=== PATIENT | male | born 1945 | race Caucasian/White ===

== ENCOUNTER → 2021-11-23 | Outpatient (CLI) | payer MEDICARE, SELFPAY ==
--- NOTE | 2021-11-23 06:41 | ECHOD_ITS ---
Reason For Study: Arrhythmia Procedure This was a 2D Doppler, Color Flow transthoracic echocardiogram. The study was technically difficult. Exam performed in department. Left Ventricle Normal LV size. Left ventricular systolic function is normal. The estimated ejection fraction is 55 %. No evidence for diastolic dysfunction. No regional wall motion abnormalities noted. Right Ventricle Normal RV size. Normal systolic function. Atria The left atrium is mildly enlarged. Normal right atrium. No doppler evidence for ASD. Mitral Valve There is no mitral annular calcification. Normal mitral valve. Mild (1+) mitral valve insufficiency. Tricuspid Valve Normal tricuspid valve. Trivial tricuspid valve insufficiency. Unable to estimate RV systolic pressure due to insufficient tricuspid regurgitant envelope. Aortic Valve Trisinus/trileaflet aortic valve. Mild focal aortic valve calcification. Trivial aortic valve insufficiency. Pulmonic Valve Normal pulmonic valve. Trivial pulmonic valve insufficiency. Great Vessels The aortic root is not well visualized. Pericardium/Pleural No pericardial effusion. MMode/2D Measurements & Calculations LVIDd: 4.5 cm IVSd: 1.1 cm LA dimension: 3.8 cm LVIDs: 3.1 cm LVPWd: 0.99 cm RVDd: 3.5 cm FS: 31.8 % LAV(MOD-bp): 63.6 ml LA A4 area: 21.5 cm2 RA A4 area: 16.3 cm2 LAV(MOD-bp) Indexed: 32.6 ml/m2 LAV(MOD-sp2): 62.5 ml LAV(MOD-sp4): 62.2 ml Time Measurements MV dec time: 0.30 sec Doppler Measurements & Calculations MV E max jay: 61.0 cm/sec Lat Peak E' Jay: 8.2 cm/sec Med Peak E' Jay: 6.4 cm/sec MV A max jay: 99.7 cm/sec E/E' lat: 7.4 E/E' med: 9.5 MV E/A: 0.61 MV V2 max: 111.2 cm/sec MV P1/2t max jay: 83.7 cm/sec Ao V2 max: 122.7 cm/sec MV max P.9 mmHg MV P1/2t: 112.0 msec Ao max P.0 mmHg MV V2 mean: 57.8 cm/sec MV dec slope: 218.9 cm/sec2 Ao V2 mean: 82.9 cm/sec MV mean P.6 mmHg MVA(P1/2t): 2.0 cm2 Ao mean P.2 mmHg MV V2 VTI: 31.3 cm Ao V2 VTI: 28.4 cm AI max ajy: 434.6 cm/sec LV V1 max: 102.2 cm/sec PA V2 max: 74.5 cm/sec AI max P.6 mmHg LV V1 max P.2 mmHg LV V1 mean P.2 mmHg AI dec slope: 235.2 cm/sec2 LV V1 mean: 68.5 cm/sec AI P1/2t: 541.3 msec LV V1 VTI: 23.3 cm ECHO/Echo Complete Interpretation Summary The study was technically difficult. Left ventricular systolic function is normal. The estimated ejection fraction is 55 %. The left atrium is mildly enlarged. There is no mitral annular calcification. Mild (1+) mitral valve insufficiency. Trivial tricuspid valve insufficiency. Mild focal aortic valve calcification. Trivial aortic valve insufficiency. Trivial pulmonic valve insufficiency. Unable to estimate RV systolic pressure due to insufficient tricuspid regurgita nt envelope. No evidence for diastolic dysfunction. Ordering Physician: Dieudonne Juan Referring Physician: Dieudonne Juan Performed By: Abhishek Morton RCS
--- NOTE | 2021-11-23 18:26 | STRESSREP_ITS ---
Stress Test Report Date: 11-23-2021 Procedure: Exercise tolerance test/imaging study Indications: Chest pain; shortness of breath/dyspnea on exertion; palpitations; paroxysmal atrial fibrillation; ventricular tachycardia Consent: Per the patient Procedure: The patient exercised on a Greyson protocol for 6 minutes completing Stage II achieving a peak heart rate of 142 bpm (98% predicted maximal heart rate) with a peak blood pressure 190/70 mmHg and a peak MET capacity of 7 METs. The baseline ECG demonstrated sinus bradycardia. The peak exercise ECG demon strated demonstrated approximately 1 to 2 mm of horizontal/downsloping ST segment depression in leads II, III, aVF, and V5 through V6 with gradual resolution towards baseline in recovery. There were occasional PVCs during exercise and recovery as well as an episode of wide-complex tachycardia (with a left bundle branch block pattern) at peak recovery with subsequent spontaneous resolution towards baseline reported after coughing. The functional capacity was considered good. There was chest discomfort in early recovery during the wide-complex rhythm which subsequently ceased status post conversion of the wide-complex rhythm back to baseline.. The examination was discontinued secondary to dyspnea. Impression: 1. Technically adequate (percent predicted maximal heart rate greater than 85%) exercise tolerance test 2. Peak exercise ECG with approximately 1 to 2 mm horizontal/downsloping ST segment depression in leads II, III, aVF, and V5 through the V6 with gradual resolution towards baseline in recovery 3. There were occasional PVCs during exercise and recovery as well as an episode of wide-complex tachycardia (with a left bundle branch block pattern) at peak recovery with subsequent spontaneous resolution towards baseline reported after coughing 4. Nuclear images pending Myocardial perfusion imaging study: Technique: The patient was injected with 11.4 mCi of technetium 99m Cardiolite and subsequently rest SPECT Cardiolite nuclear imaging was obtained in the horizontal long, vertical long, and short axis views. The patient exercised on a Greyson protocol for 6 minutes completing Stage II achieving a peak heart rate of 142 bpm (98% predicted maximal heart rate) with a peak blood pressure 190/70 mmHg and a peak MET capacity of 7 METs. The patient was injected with 32.8 mCi of technetium 99m Cardiolite and subsequently stress SPECT Cardiolite nuclear imaging was obtained in the horizontal long, vertical long, and short axis views. A gated Cardiolite study at peak stress was not obtained. Interpretation: Rest and stress SPECT Cardiolite nuclear imaging status post realignment, normalization, and attenuation correction, demonstrates the appearance of relative uniform tracer uptake and myocardial perfusion appearing within normal limits. Impression: 1. Rest and stress SPECT Cardiolite nuclear imaging demonstrate relative uniform tracer uptake and myocardial perfusion appearing within normal limits. 2. The gated Cardiolite study was not obtained. This note was generated with [employer] software. It may contain incorrect words, spelling, and punctuation that were not noted in checking the note before signing.
== END | disposition home or self-care (01) ==
LOC: CVS 06:33
PROVIDERS: PCP Nurse Practitioner Family; Referring Provider Internal Medicine Cardiovascular Disease; Visit Provider Internal Medicine Cardiovascular Disease
DX: I47.2 Ventricular tachycardia (principal); I48.0 Paroxysmal atrial fibrillation; Z98.890 Other specified postprocedural states; I10 Essential (primary) hypertension; E78.2 Mixed hyperlipidemia; R07.9 Chest pain, unspecified
CPT/HCPCS: 78452; 93017; 93306; A9500; A4216

== ENCOUNTER 2021-12-08 06:50 | Day surgery (SDC) | payer MEDICARE, SELFPAY ==
--- NOTE | 2021-12-01 09:31 | RAD_ITS ---
STUDY: X-RAY CHEST REASON FOR EXAM: Male, 76 years old. Dyspnea on exertion TECHNIQUE: PA and lateral views of the chest. COMPARISON: None. FINDINGS: There is a suggestion of minimal left lower lobe atelectasis. There is slight elevation of left hemidiaphragm. There is no demonstrated pleural abnormality. Normal size heart. Normal mediastinum and shanell. Normal visualized pulmonary arteries. Normal visualized aortic arch and descending thoracic aorta. There are diffuse degenerative changes of the visualized thoracic spine. Normal visualized ribs, clavicles, and shoulders. There is no demonstrated abnormality of the visualized soft tissue structures of the upper abdomen. RAD/Chest PA and Lateral IMPRESSION: Minimal left lower lobe atelectasis. Electronically Signed: Dianne Magdaleno MD at 2:47 EDT ,
[2021-12-01 10:38] LABS: International Normalized Ratio 1.7; Partial Thromboplast Time 32.7 Seconds (24.1-36.2); Prothrombin Time (Protime)PT. 19.3 SECONDS (11.7-14.9)
--- NOTE | 2021-12-05 17:38 | PCM.HP.BLA ---
History and Physical Date of Admission: 12/08/21 [facility] [address] [place] [address] OFFICE VISIT Date of Service:? 11/10/21 MR#: [id number] Acct: [id number] Name:DWAIN MASTERSON Rep #: [id number] : 1945 Provider: Dr. Dieudonne Juan MD Age/Sex:? 76/M Location: [facility] Status: Signed HPI [facility] History of Present Illness Details: This is a 76-year-old white male who presents today for outpatient cardiovascular consultation based upon a combination of concerns with respect to a history of PAF, ventricular tachycardia, status post EPS/RFA, hyperlipidemia, hypertension, chest discomfort/dyspnea, superimposed upon noncardiac histories which has included concerns of pulmonary fibrosis.? It appears he has undergone extensive noninvasive cardiovascular evaluation in the past as well as electrophysiology evaluation in the past. Based upon records available for review it appears on 09-07-2017 he had a transesophageal echocardiogram performed at [facility] on 09-07-2017.? Per the report stated the left ventricle was normal with an LVEF of 60 to 65%, the left atrium/appendage had no evidence of thrombus.? The mitral valve had mild MR, the aortic valve had thickening consistent with sclerosis and mild AI, the tricuspid valve had mild TR, the pulmonic valve had trivial DC, the aorta had mild atherosclerotic changes of the descending aorta, and the atrial septum had no right to left atrial level shunt. It appears that he had an exercise tolerance test/myocardial perfusion study performed on 12-25-2018.? At that point in time it stated his myocardial perfusion demonstrated normal uptake throughout the left ventricular myocardium with no previous myocardial infarction noted and no reversible defects noted and no cavitary dilatation noted.? The gated LVEF was reported at 65%. He has undergone evaluation with EPS/RFA in the past in [place], [place].? This appeared to occur in March 2004.? Per the report he had a comprehensive EPS study with catheter mapping using the CARTO mapping system, repeat programmed stimulation on Isopril, successful catheter ablation of septal concealed accessory pathway, unsuccessful catheter ablation of left ventricular outflow tract tachycardia focus. He states he has been on medical management for his cardiac dysrhythmia by his steel burner, Dr. Meadows, in [place], [place].? He states his medicines have been stable for quite some time. He also appears of had a carotid artery duplex study performed on 02-05-2017 at [facility] in [place], [place].? Per the report he had no hemodynamically significant stenosis reported. It appears that he underwent a Holter monitor in September 2018.? Per the report he had sinus rhythm with PACs and PVCs with no report of atrial fibrillation and no report of ventricular runs. He states his main concern is that when he exerts himself he develops a chest pressure over his center chest (he clenches his fist over his precordium) which sometimes radiates to his back and feels as if he has a golf ball between his shoulder blades.? He can become more short of breath and dyspneic.? He does not recall having nausea or emesis or becoming abruptly diaphoretic.? He states he will have to stop and rest to feel better.? He does not note the symptoms at rest.? When the symptoms do occur he states his blood pressure drops and he feels as if he may lose consciousness but he has not.? He notes when he is resting at times doing nothing his blood pressure significantly elevates. He states he is started to adjust his medications himself by decreasing his spironolactone/Aldactone therapy dose.? He has left his other medications as they are. He states he did discuss his concerns with his PCP group.? He states he was asked to have follow-up with Dr. Meadows, however, he states that Dr. Meadows will not address any of his cardiovascular issues separate from his cardiac rhythm related issues.? Thus he was referred for a general cardiology evaluation. In the meantime he states he has not undergone any additional cardiac diagnostic studies or evaluation. He did have an ECG in the office today.? He was noted to be in sinus rhythm with a first-degree AV block with no acute ECG changes. Intake Vital Signs ? 11/10/2208:53 Height 5 ft 8 in Weight: 180 lb 6 oz BMI 27.4 BP 160/76 H Blood Pressure Location Lt brachial Position Sitting Respiration 16 Pulse 64 Pulse Source Auscultation Intake Visit Reasons:?VT/REF. 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 Accompanied by: Allergies JUSTUS Inhibitors Adverse Reaction (Unknown, Verified 11/10/21 09:54) Unknownamlodipine Adverse Reaction (Unknown, Verified 11/10/21 09:54) EdemaSulfa (Sulfonamide Antibiotics) Adverse Reaction (Unknown, Verified 11/10/21 09:54) Unknown Medications alprazolam 0.25 mg tablet (Xanax) 0.25 mg PO TID PRN 11/08/21 [History Confirmed 11/10/21] atorvastatin 20 mg tablet 20 mg PO QHS 11/08/21 [History Confirmed 11/10/21] multivitamin 1 tab PO DAILY 11/08/21 [History Confirmed 11/08/21] rivaroxaban 20 mg tablet (Xarelto) 20 mg PO DAILY 11/08/21 [History Confirmed 11/10/21] spironolactone 25 mg tablet (Aldactone) 12.5 mg PO DAILY 11/08/21 [History Confirmed 11/10/21] valsartan 160 mg tablet (Diovan) 160 mg PO DAILY 11/08/21 [History Confirmed 11/10/21] albuterol sulfate 90 mcg/actuation aerosol inhaler (ProAir HFA) 1 inh inhalation DAILY PRN 11/10/21 [History Confirmed 11/10/21] budesonide-formoterol HFA 160 mcg-4.5 mcg/actuation aerosol inhaler (Symbicort) 2 puff inhalation Q12H PRN 11/10/21 [History Confirmed 11/10/21] flecainide 50 mg tablet 75 mg PO Q12H 11/10/21 [History Confirmed 11/10/21] dptevxkh-jlu- 250 mg-dha 90 mg-epa 160 bs-cxcn-ywke-zeax capsule (Ocuvite Adult 50 Plus) 2 cap PO QAM 11/10/21 [History Confirmed 11/10/21] PFSH Medical History? Asthma CVA (cerebral vascular accident) Essential hypertension History of DVT (deep vein thrombosis) Mixed hyperlipidemia NSVT (nonsustained ventricular tachycardia) Paroxysmal atrial fibrillation Pulmonary fibrosis Surgical History? History of cardiac radiofrequency ablation (~03/31/04) Family History? Father?? Renal failureBrother?? ,? 65 Heart disease Renal failure Social History? Smoking Status:? Former smoker alcohol intake:? current details:? 1-7 beers per week substance use type:? does not use caffeine:? No ROS Const Const: Negative for fatigue, weakness, body ache, fever(s), headache(s), chills, frequent falls, night sweats, daytime sleepiness, difficulty sleeping, excessive sweating, weight gain, weight loss, increased appetite, poor appetite, anorexia or other Eyes Eyes: Negative for blurry vision or double vision ENT ENT: Positive for dizziness (chest discomfort); Negative for headache(s) or balance problems Cardio Chest Pain: Yes Character: tightness Onset: exercise Location: mid sternal and other (at times; feeling knot in back between shoulder blades radiates to chest tightness ) Duration: brief (becomes dizzy/lightheaded BP drops) Relieving: rest Palpitations: Yes (occasional ) feels like its: irregular Edema: None Muscle aches with walking: None Resp Respiratory: Positive for SOB with activity (baseline) and SOB orthopnea\SOB lying down (wears oxygen @ 3.5L NC @ night); Negative for SOB at rest, Cough, Coughing up blood/hemoptysis, chest congestion, pain on inspiration, snoring, stridor, wheezing, crackles, paroxysmal nocturnal dyspnea or other Musc Musc: Negative for muscle aches/ myalgia, muscle weakness, joint pain or balance problems Neuro Neuro: Positive for dizziness (chest discomfort) and lightheadedness (chest discomfort); Negative for near syncope, syncope, orthostatic symptoms, frequent falls, headache(s), weakness, confusion, memory loss, restless legs, blurry vision, double vision, vertigo, seizures, lack of coordination or other Endo Endo: Negative for fatigue or excessive sweating Cardiology Exam Const Appearance: cooperative, healthy appearing, comfortable, no acute distress, well developed and well groomed Nutritional Appearance: overweight Orientation: alert, awake and oriented x3 Head Head: normal to inspection, normocephalic and atraumatic Ears: hearing grossly normal bilaterally Nose: external nose normal Face and Sinus: face symmetric Eyes Eyelids: eyelids normal Conjunctivae: conjunctivae normal Pupils: PERRL EOM: EOM intact bilaterally Neck Neck: normal visual inspection and full ROM Carotids: normal carotid upstroke Chest Chest inspection: normal inspection of the chest, symmetric chest movement and normal respiratory effort Auscultation: Bilateral: Rales (bases: faint: dry) Cardio Palpation: normal PMI Rate: regular rate Rhythm: regular rhythm Heart sounds: S1 normal and S2 normal GI GI: normal to inspection, soft and bowel sounds present Skin Skin: no rashes or lesions noted Extremities Pulses: Normal: Right Radial Pulse and Left Radial Pulse Lower Extremity Edema: None: Bilateral Psych Psychological: normal affect Supplemental Info Supplemental Information Labs: ?? ? No Data to Display Diagnostics: ?? ? No Data to Display Pulmonary: ?? ? No Data to Display Assessment and Plan Assessment and Plan (1) NSVT (nonsustained ventricular tachycardia): ?Status:?Acute ?Plan: He does have a history of nonsustained VT. He has been evaluated by electrophysiology in the past. At the present time he will continue his current medical management. (2) Paroxysmal atrial fibrillation: ?Status:?Acute ?Plan: He has a history of PAF. At the moment he will continue his current antiarrhythmic therapy. He is also on anticoagulant therapy. (3) History of cardiac radiofrequency ablation: ?Status:?Acute ?Comment: Ablation for ventricular ectopy 03/31/04 Dr. Meadows ?Plan: He has undergone previous EPS/RFA as noted. He should continue to follow with his steel burner for concerns of his underlying cardiac dysrhythmias. (4) Mixed hyperlipidemia: ?Status:?Acute ?Plan: He will continue risk factor modification medical therapy as deemed appropriate. Future lipid labs will be appropriate to monitor his cardiovascular risks. (5) Essential hypertension: ?Status:?Acute ?Plan: The etiology of his blood pressure alterations is unclear at this time. There may be some concerns, especially with respect to his exertion and his report of dropping his blood pressure, as to whether there is a change in his coronary anatomy and physiology and subsequent ventricular wall motion and systolic function, etc. At the moment he will continue his current medical therapy.? However, he will undergo further evaluation for his hypertensive changes. This will include an echocardiogram to reassess his ventricular wall motion and systolic function, renal artery duplex study to evaluate for any obvious evidence of renal artery stenosis, as well as an exercise tolerance test/imaging study to evaluate his blood pressure response with exercise and for any concerns of stress-induced myocardial ischemia that would be contributing to a change in his blood pressure especially hypotension, which would then lead to further evaluation in the cardiac catheterization laboratory which she has not previously undergone. (6) Angina pectoris: ?Status:?Acute ?Plan: The patient describes symptoms appearing compatible with angina pectoris with exertion. Again if he does have underlying CAD and myocardial ischemia that is affecting his blood pressure response with exertion (i.e. hypotension), hopefully this can be brought out by noninvasive studies.? If that is the case then would be reasonable to pursue further invasive evaluation. ? ? ? Orders: Orders 12 Lead EKG performed by [facility] Today I47.2 - Ventricular tachycardia, I48.0 - Paroxysmal atrial fibrillation ? Comprehensive Metabolic Profil 1 Day E78.2 - Mixed hyperlipidemia, I10 - Essential (primary) hypertension, I47.2 - Ventricular tachycardia, I48.0 - Paroxysmal atrial fibrillation, Z98.890 - Other specified postprocedural states ? Lipid Profile Today E78.2 - Mixed hyperlipidemia, I10 - Essential (primary) hypertension, I47.2 - Ventricular tachycardia, I48.0 - Paroxysmal atrial fibrillation, Z98.890 - Other specified postprocedural states ? Liver Profile Today E78.2 - Mixed hyperlipidemia, I10 - Essential (primary) hypertension, I47.2 - Ventricular tachycardia, I48.0 - Paroxysmal atrial fibrillation, Z98.890 - Other specified postprocedural states ? Thyroid Stim Hormone (TSH) Today E78.2 - Mixed hyperlipidemia, I10 - Essential (primary) hypertension, I47.2 - Ventricular tachycardia, I48.0 - Paroxysmal atrial fibrillation, Z98.890 - Other specified postprocedural states ? Echo Complete Today E78.2 - Mixed hyperlipidemia, I10 - Essential (primary) hypertension, I47.2 - Ventricular tachycardia, I48.0 - Paroxysmal atrial fibrillation, Z98.890 - Other specified postprocedural states ? CBC W/Diff, Automated Today E78.2 - Mixed hyperlipidemia, I10 - Essential (primary) hypertension, I47.2 - Ventricular tachycardia, I48.0 - Paroxysmal atrial fibrillation, Z98.890 - Other specified postprocedural states ? Nuclear Stress Test - Treadmil Today E78.2 - Mixed hyperlipidemia, I10 - Essential (primary) hypertension, I47.2 - Ventricular tachycardia, I48.0 - Paroxysmal atrial fibrillation, Z98.890 - Other specified postprocedural states ? Renal Artery Duplex Ultrasound Today E78.2 - Mixed hyperlipidemia, I10 - Essential (primary) hypertension, I47.2 - Ventricular tachycardia, I48.0 - Paroxysmal atrial fibrillation, Z98.890 - Other specified postprocedural states ? Plan Details Additional Comments: The patient's case was discussed and reviewed with the patient with his spouse present. The present time he will continue his medical therapy and proceed with additional noninvasive studies as noted above.? Depending upon his studies he may or may not need further invasive studies.? Also depending upon his clinical course he may need input from other physicians as well with respect to his blood pressure changes.? This could include potentially nephrology. Thank you for allowing me to participate in the care of your patient.? Please don't hesitate to call if any issues arise. This note was generated using a voice recognition system and there may be incorrect words, spelling or punctuation that were not noted when reviewing the office note prior to saving. Follow Up: ? ? 6 Weeks (PFM ) COVID (Procedure Consent) Procedure Criteria Procedure Criteria: Yes Elective The surgeon/proceduralist and patient have discussed in detail the risk of exposure to and/or potential harm posed by the COVID-19 virus with having a surgery/procedure at this time versus the risk of? delaying the surgery/procedure. It is not possible to know either the risk of delaying the surgery or procedure or chance of getting an infection with perfect accuracy, but a joint decision was made between the patient and the surgeon/proceduralist ?to proceed at this time with the scheduled surgery/procedure as indicated on the consent form. Coding Level of Care Code Off vis,new,level 5 Diagnoses NSVT (nonsustained ventricular tachycardia)? I47.2 Paroxysmal atrial fibrillation? I48.0 History of cardiac radiofrequency ablation? Z98.890 Mixed hyperlipidemia? E78.2 Essential hypertension? I10 Angina pectoris? I20.9 Coding Level of Care Code Off vis,new,level 5 Diagnoses NSVT (nonsustained ventricular tachycardia)? I47.2 Paroxysmal atrial fibrillation? I48.0 History of cardiac radiofrequency ablation? Z98.890 Mixed hyperlipidemia? E78.2 Essential hypertension? I10 Angina pectoris? I20.9 11/10/21 1306 <Electronically signed by Dieudonne Juan MD> Date Dieudonne Juan MD Cosigner Signature: Date (if applicable) CC: ? KIRK Gandara ~ Assessment & Plan Addt'l Comments Addendum: The patient underwent a transthoracic echocardiogram on 11-23-2021. The results are noted below. Interpretation Summary The study was technically difficult. ? Left ventricular systolic function is normal. The estimated ejection fraction is 55 %. The left atrium is mildly enlarged. There is no mitral annular calcification. Mild (1+) mitral valve insufficiency. Trivial tricuspid valve insufficiency. Mild focal aortic valve calcification. Trivial aortic valve insufficiency. Trivial pulmonic valve insufficiency. Unable to estimate RV systolic pressure due to insufficient tricuspid regurgitant envelope. No evidence for diastolic dysfunction. The patient underwent a stress imaging study on 11-23-2021. The results are noted below. Stress Test Report Date: 11-23-2021 Procedure: Exercise tolerance test/imaging study Indications: Chest pain; shortness of breath/dyspnea on exertion; palpitations; paroxysmal atrial fibrillation; ventricular tachycardia Consent: Per the patient Procedure: The patient exercised on a Greyson protocol for 6 minutes completing Stage II achieving a peak heart rate of 142 bpm (98% predicted maximal heart rate) with a peak blood pressure 190/70 mmHg and a peak MET capacity of 7 METs. The baseline ECG demonstrated sinus bradycardia.? The peak exercise ECG demonstrated demonstrated approximately 1 to 2 mm of horizontal/downsloping ST segment depression in leads II, III, aVF, and V5 through V6 with gradual resolution towards baseline in recovery. There were occasional PVCs during exercise and recovery as well as an episode of wide-complex tachycardia (with a left bundle branch block pattern) at peak recovery with subsequent spontaneous resolution towards baseline reported after coughing. The functional capacity was considered good. There was chest discomfort in early recovery during the wide-complex rhythm which subsequently ceased status post conversion of the wide-complex rhythm back to baseline.. The examination was discontinued secondary to dyspnea. Impression: 1.? Technically adequate (percent predicted maximal heart rate greater than 85%) exercise tolerance test 2.? Peak exercise ECG with approximately 1 to 2 mm horizontal/downsloping ST segment depression in leads II, III, aVF, and V5 through the V6 with gradual resolution towards baseline in recovery 3.? There were occasional PVCs during exercise and recovery as well as an episode of wide-complex tachycardia (with a left bundle branch block pattern) at peak recovery with subsequent spontaneous resolution towards baseline reported after coughing 4.? Nuclear images pending Myocardial perfusion imaging study: Technique: The patient was injected with 11.4 mCi of technetium 99m Cardiolite and subsequently rest SPECT Cardiolite nuclear imaging was obtained in the horizontal long, vertical long, and short axis views. The patient exercised on a Greyson protocol for 6 minutes completing Stage II achieving a peak heart rate of 142 bpm (98% predicted maximal heart rate) with a peak blood pressure 190/70 mmHg and a peak MET capacity of 7 METs. The patient was injected with 32.8 mCi of technetium 99m Cardiolite and subsequently stress SPECT Cardiolite nuclear imaging was obtained in the horizontal long, vertical long, and short axis views.? A gated Cardiolite study at peak stress was not obtained. Interpretation: Rest and stress SPECT Cardiolite nuclear imaging status post realignment, normalization, and attenuation correction, demonstrates the appearance of relative uniform tracer uptake and myocardial perfusion appearing within normal limits. Impression: 1.? Rest and stress SPECT Cardiolite nuclear imaging demonstrate relative uniform tracer uptake and myocardial perfusion appearing within normal limits. 2.? The gated Cardiolite study was not obtained. Based upon the patient's history, clinical course, and the objective findings with respect to his symptoms and wide-complex tachycardia, despite his lack of obvious myocardial perfusion changes, it was recommended the patient undergo further evaluation with diagnostic cardiac catheterization. The procedure and risk were discussed with the patient. He was agreeable to this approach. I have re-examined the patient. There are no clinical changes since date of exam. This note was generated using a voice recognition system and there may be incorrect words, spelling or punctuation that were not noted when reviewing the office note prior to saving.
[2021-12-07 07:25] VITALS: BMI 27.3
--- NOTE | 2021-12-08 09:30 | CL.D_ITS ---
Patient Name: DWAIN ASTORGA Study Date: 12/08/2021 Performing: Dieudonne Juan MD Ht: 68 inches 172.72 cm : 1945 Wt: 180.01 lbs 81.65 kg Age: 76 Gender: male BSA: 1.95 PROCEDURE(S) PERFORMED DC01-(39392)LHC/COR/LV CLINICAL PROFILE AND INDICATIONS Indications: Cardiac Arrythmia, Suspected CAD Heart Failure: None Stress/Imaging Date: 11/23/2021tress Test with SPECT MPI: Positive Intermediate Risk (abnormal ECG portion / unremarkable myocardial perfusion portion) Angina Classification Anginal Classification w/in 2 Weeks: CCS III CAD Presentations: Other: chest pain / fatigue CONCLUSIONS Elevated Left Ventricular End Diastolic Pressure Normal LV size, wall motion,and systolic function LVEF: by LV gram post PVC: 55 % Normal coronary arteries (LAD: proximal moderate calcification: otherwise angiographically normal appearing) RECOMMENDATIONS Risk factor modification Medical therapy Case discussed / reviewed with Dr. Flores of Interventional Cardiology DESCRIPTION OF PROCEDURE The patient arrived to the procedure lab. The risks and benefits of the procedure as well as a full description of our services here and current unavailability of surgical backup were fully explained to the patient and/or their significant other prior to the catheterization. The Timeout was completed, verifying the correct patient and procedure. The patient's procedural site was prepped and draped in the usual fashion. Local anesthetic was given subcutaneously to right radial region with Lidocaine 2%. Using a modified Seldinger technique, arterial access was obtained via the right radial artery, a 6Fr sheath was inserted. Right Coronary Artery selective angiography was then performed in multiple views using a 5 Fr. 4.0 Liberty catheter. Left Coronary Artery selective angiography was performed in multiple views using a 5 Fr. JL3.5 catheter. Left Ventriculography was performed in KOO projection using a 5 Fr. Pigtail catheter. LV to AO pullback pressures were then recorded.The arterial sheath was pulled and a TR Band was applied for hemostasis. Sheath flushed prior to removal. 10cc air inserted. CORONARY ANGIOGRAPHY DOMINANCE: Co- Dominant LEFT HEART ASSESSMENT Left Ventricular Ejection Fraction: by LV Gram post PVC: 55 % Normal LV wall motion Elevated Left Ventricular End Diastolic Pressure LVEDP: 24 mmHg LEFT MAIN: Angiographically normal LEFT ANTERIOR DESCENDING ARTERY: Angiographically normal PROX LAD: Moderate calcification CIRCUMFLEX ARTERY: Angiographically normal RIGHT CORONARY ARTERY: Angiographically normal AORTIC ROOT: Angiographically normal COMPLICATIONS No Complications PROCEDURE MEDICATIONS Fentanyl 50 mcg IV Versed 1 mg IV Oxygen: 2 L/min via nasal cannula Heparin given IA 12/08/2021 08:14:46 Verapamil 2.5mg, Ntg 100mcgs, 3000 units of Heparin given IA 12/08/2021 08:14:46 SUMMARY OF HEMODYNAMIC DATA Time AIR REST ECG 07:10:28 AO 178/85 (120) SA 08:32:39 LV 196/0, 30 08:41:42 LV 200/-3, 24 08:41:51 LV 196/-3, 29 08:42:48 LV 197/-3, 25 08:42:56 LVp 198/-3, 23 08:43:01 AOp 201/83 (127) 08:43:08 AIR REST 09:28:08 Signed By Dieudonne Juan MD On 12/08/2021 09:29:15 Dieudonne Juan MD
== END 2021-12-08 11:15 | disposition home or self-care (01) ==
PROVIDERS: PCP Nurse Practitioner Family; Referring Provider Internal Medicine Cardiovascular Disease; Visit Provider Internal Medicine Cardiovascular Disease
DX: I47.2 Ventricular tachycardia (principal); I48.0 Paroxysmal atrial fibrillation; J84.10 Pulmonary fibrosis, unspecified; J45.909 Unspecified asthma, uncomplicated; Z86.73 Personal history of transient ischemic attack (TIA), and cerebral infarction without residual deficits; I10 Essential (primary) hypertension; Z86.718 Personal history of other venous thrombosis and embolism; E78.2 Mixed hyperlipidemia; Z79.899 Other long term (current) drug therapy; Z79.01 Long term (current) use of anticoagulants; Z87.891 Personal history of nicotine dependence; I44.0 Atrioventricular block, first degree
CPT/HCPCS: 36415; 71046; 85610; 85730; 93458; 99152; 99153; J7040; C1769; C1894; Q9967

== ENCOUNTER → 2021-12-29 | Outpatient (CLI) | payer MEDICARE, SELFPAY ==
--- NOTE | 2021-12-29 07:38 | RDU_ITS ---
Reason For Study: HTN Right Renal Artery Left Renal Artery Right renal artery ostium 71.4/13.8 Left renal artery ostium 77.8/15.7 RSV/EDV. PSV/EDV. Right renal artery proximal Left renal artery proximal PSV/EDV 95.3/24.1 PSV/EDV. 75.7/16.7 . Right renal artery mid 123.5/30.3 Left renal artery mid 84.3/21.6 PSV/EDV. PSV/EDV . Right renal artery distal Left renal artery distal 95.2/22 119.9/23.3 PSV/EDV. PSV/EDV. Right RAR 2.07. Left RAR 1.59. Right Renal Parenchyma Left Renal Parenchyma Upper Pole Medula 31.1/8.4 PSV/EDV. Left upper pole medulla 33.7/8.5 Right upper pole medulla EDR 0.3 . PSV/EDV . Right upper pole medulla R.I. Left upper pole medulla EDR 0.3 . 0.73 . Left upper pole medulla R.I. 0.75 . Upper Arsen Cortx 18.8/4.7 PSV/EDV. UP Cortex 19.6/4.9 PSV/EDV. Right upper pole cortex EDR 0.2 . Left upper pole cortex EDR 0.2 . Right upper pole cortex R.I. 0.75 . Left upper pole cortex R.I. 0.75 . Right lower Pole medulla 28/7.1 Left lower Pole medulla 27/6.1 PSV/EDV . PSV/EDV . Right lower pole medulla EDR 0.3 . Left lower pole medulla EDR 0.2 . Right lower pole medulla R.I. Left lower pole medulla R.I. 0.77 . 0.75 . Lower Pole Cortx 17.1/4.9 PSV/EDV. Lower Pole Cortex 22.5/5.3 PSV/EDV. Left lower pole cortex EDR 0.3 . Right lower pole cortex EDR 0.2 . Left lower pole cortex R.I. 0.72 . Right lower pole cortex R.I. 0.77 . Left Renal Hilar Right Renal Hilar LT Hilar avg 59.9/13.8 PSV/EDV . Right Hilar avg 48/11.4 PSV/EDV. Left hilar acceleration time 50 Right hilar acceleration time 60 m/sec. m/sec. Left Renal Dimensions Right Renal Dimensions Left kidney size 10.65 cm . Right kidney size 10.61 cm . Left cortical dimension 2.01 cm . Right cortical dimension 1.83 cm . Nonvascularized structure is noted on the left lower pole of the kidney that measures 1.25 x 1.49 cm. Aorta Proximal abdominal aorta 2.01 x 2.04 cm . Proximal abdominal aorta peak systolic velocity is 59.8 cm/sec . Distal abdominal aorta 1.60 x 1.56 cm . Distal abdominal aorta peak systolic velocity is 61.6 cm/sec . VL/Renal Artery Duplex Ultrasound Interpretation Summary Right renal artery velocities are normal with no evidence of stenosis Right renal vein patent. The right kidney is normal in size. Left renal artery velocities are normal, with no evidence of stenosis Left renal vein patent The left kidney is normal in size. Non vascularized structure is noted on the left lower pole of the kidney that m easures 1.25 x 1.49 cm. Ordering Physician: Dieudonne Juan Referring Physician: Frida Francois Performed By: Irma Levy RVT
== END | disposition home or self-care (01) ==
LOC: CVS 07:33
PROVIDERS: PCP Nurse Practitioner Family; Visit Provider Internal Medicine Cardiovascular Disease
DX: I10 Essential (primary) hypertension (principal); I48.0 Paroxysmal atrial fibrillation; I47.20 Ventricular tachycardia, unspecified; E78.2 Mixed hyperlipidemia; Z98.890 Other specified postprocedural states
CPT/HCPCS: 93975

== ENCOUNTER → 2022-05-05 | Outpatient (CLI) | payer MEDICARE, SELFPAY ==
--- NOTE | 2022-05-05 11:56 | US_ITS ---
STUDY: RENAL ULTRASOUND - COMPLETE REASON FOR EXAM: Male, 77 years old. CKD TECHNIQUE: Ultrasound evaluation of the kidneys was performed with real-time and static pearce-scale imaging. COMPARISON: None. FINDINGS: RIGHT KIDNEY: Normal location of the right kidney, which is normal in size. The right kidney measures 10.4 cm x 4.3 cm x 5.8 cm. There is a normal cortex of the right kidney. The renal cortex measures 1.7 cm. There is no right renal mass or cyst. There are no right renal calculi. There is an extra-renal pelvis of the right kidney. There is no distention of the renal calyces. DISTAL RIGHT URETER: There is non-visualization of the distal right ureter. There is no demonstrated right ureterovesical junction calculus. There is a visualized right ureteral jet. LEFT KIDNEY: Normal location of the left kidney, which is normal in size. The left kidney measures 11.4 cm x 4.1 cm x 5.2 cm. There is a normal cortex of the left kidney. The renal cortex measures 1.4 cm. There is a 1.6 cm x 1.6 cm x 1.3 cm renal cyst. There are no left renal calculi. There is no left hydronephrosis. DISTAL LEFT URETER: There is non-visualization of the distal left ureter. There is no demonstrated left ureterovesical junction calculus. There is no demonstrated left ureteral jet. BLADDER: The distended urinary bladder has a volume of 340 ml. There is a normal wall thickness of the distended urinary bladder. There is no demonstrated mass within the urinary bladder. There are no demonstrated bladder calculi. US/Kidney and Bladder IMPRESSION: 1.6 x 1.6 cm x 1.3 cm cyst in the left kidney. Electronically Signed: Miquel Amos MD at 14:23 EST ,
== END | disposition home or self-care (01) ==
PROVIDERS: PCP Nurse Practitioner Family; Visit Provider Internal Medicine Nephrology
DX: N17.9 Acute kidney failure, unspecified (principal)
CPT/HCPCS: 76770

== ENCOUNTER → 2022-05-24 | Outpatient (CLI) | payer MEDICARE, SELFPAY ==
[2022-05-24 08:39] LABS: Hematocrit 46.1 % (40-54); Hemoglobin 15.3 g/dL (13.0-16.5)
[2022-05-24 09:04] LABS: PTHIN 62.6 pg/mL (18.4-80.1)
== END | disposition home or self-care (01) ==
LOC: LAB 08:25
PROVIDERS: PCP Nurse Practitioner Family; Referring Provider Internal Medicine Nephrology; Visit Provider Internal Medicine Nephrology
DX: N18.31 Chronic kidney disease, stage 3a (principal)
CPT/HCPCS: 36415; 83970; 85014; 85018

== ENCOUNTER 2023-07-16 21:31 | Inpatient (IN) | payer MEDICARE, SELFPAY ==
[2023-07-16] VITALS (8 sets, daily range): BP systolic 169–216; BP diastolic 80–109; PULSE 58–76; RESP 13–20; TEMP 36.3–36.8; O2SAT 92–97; BMI 12.4; BMI 27.3
--- NOTE | 2023-07-16 21:35 | EKG12_ITS ---
Test Reason : Blood Pressure : / mmHG Vent. Rate : 067 BPM Atrial Rate : 067 BPM P-R Int : 388 ms QRS Dur : 100 ms QT Int : 444 ms P-R-T Axes : 074 -19 033 degrees QTc Int : 469 ms Sinus rhythm with 1st degree A-V block Minimal voltage criteria for LVH, may be normal variant ( R in aVL ) Borderline ECG Confirmed by SUHAS SOTO, LITO ([id number]), dictionary editor GERARD ALBARRAN ([id number]) on 07/23/2023 1:25:02 PM Referred By: Confirmed By:NORMA DAI MD
--- NOTE | 2023-07-16 21:35 | CT_ITS ---
We are attempting to reach an attending provider to discuss findings. An addendum with communication details will be sent when the communication is complete. STUDY: CT BRAIN WITHOUT CONTRAST REASON FOR EXAM: Male, 78 years old. Neuro deficit, acute, stroke suspected RADIATION DOSAGE (If Supplied By Facility): CTDIvol = ( ) mGy, DLP = ( ) mGycm TECHNIQUE: Transaxial CT imaging of the brain was performed without administration of intravenous contrast material. Individualized dose optimization techniques were used for this CT. COMPARISON: No relevant priors. FINDINGS: Normal soft tissue structures. Normal calvarium. There is mild cerebral atrophy with widening of the extra-axial spaces and ventricular dilatation. There are areas of decreased attenuation within the white matter tracts of the supratentorial brain, consistent with microvascular disease changes. There are small punctate calcifications of the basal ganglia which are seen in the aging brain as a normal variant. Normal brainstem. Normal cerebellum. There is no intracranial hemorrhage. There are no findings of an acute ischemic infarction. Normal visualized paranasal sinuses. CT/STROKE Brain/Head without Cont IMPRESSION: Chronic involutional changes of the brain. Electronically Signed: Merrill Ng MD at 21:50 EDT ,
[2023-07-16 21:52] LABS: Absolute Lymphocyte Count 1.52 X10^3/uL (0.83-4.51); Absolute Neutrophil Count 6.5 X10^3/uL (2.0-7.7); Basophil# 0.04 X10^3/uL; Basophil% 0.4 % (0-1); Eosinophil# 0.18 X10^3/uL; Eosinophils% 1.9 % (0-5); Hematocrit 45.1 % (40-54); Hemoglobin 15.1 g/dL (13.0-16.5); Lymphocyte # 1.52 X10^3/ul (0.83-4.51); Lymphocyte % 16.4 % (19-41); Mean Corp Hgb Conc 33.5 g/dL (32-36); Mean Corpuscular Hgb 32.1 pg (27.0-32.0); Mean Platelet Vol. 9.1 fl (6.2-12.0); Monocyte# 1.03 X10^3/uL; Monocyte% 11.1 % (0-10); NRBC Flagged by Analyzer 0 % (0-5); Neutrophil # 6.49 X10^3/uL (2.7-7.7); Platelet Count 231 K/mm3 (150-450); RBC Distribution Width CV 12.7 % (11.6-14.6); RBC Distribution Width SD 45.2 fl (35.1-43.9); White Blood Count 9.3 K/mm3 (4.4-11.0)
[2023-07-16 22:02] LABS: International Normalized Ratio 1.3; Partial Thromboplast Time 27.7 Seconds (24.1-36.2); Prothrombin Time (Protime)PT. 16.5 SECONDS (11.7-14.9)
--- NOTE | 2023-07-16 22:05 | RAD_ITS ---
STUDY: X-RAY CHEST REASON FOR EXAM: Male, 78 years old. Neuro deficit, acute, stroke suspected TECHNIQUE: Single AP portable view of the chest. COMPARISON: 12/01/2021 FINDINGS: The lungs are clear and expanded. There is no demonstrated pleural abnormality. Normal size heart. Normal mediastinum and shanell. Normal visualized pulmonary arteries. Normal visualized aortic arch and descending thoracic aorta. Normal visualized thoracic spine. Normal visualized ribs, clavicles, and shoulders. There is no demonstrated abnormality of the visualized soft tissue structures of the upper abdomen. RAD/Chest 1 View IMPRESSION: Normal x-ray examination of the chest. Electronically Signed: Merrill Ng MD at 22:28 EDT ,
[2023-07-16 22:13] LABS: Anion Gap 6 (5-15); BUN 20 mg/dL (7-18); BUN/Creat Ratio 14.4 RATIO (10-20); Calcium,Total 8.5 mg/dL (8.5-10.1); Chloride 104 mmol/L (98-107); Creatinine, Serum 1.39 mg/dL (0.70-1.30); EST Glomerular Filtration Rate 53 mL/min (>60); Est Glom Filt Rate - Afr Amer 64 mL/min (>60); Estimated Creatinine Clearance 42.37 ml/min; Glucose 99 mg/dL (74-106); Sodium Level 137 mmol/L (136-145); Troponin-I HS 14 pg/mL (3.0-78.0)
--- NOTE | 2023-07-16 22:48 | ED.VIS.STROK ---
HPI History of Present Illness Chief Complaint: Neuro S/Sx Informant: patient and family Onset/Context/Timing Onset: Today Narrative Narrative: Patient presents at approximate 9:30 PM for evaluation of left facial droop, slurred speech, and left-sided weakness. Patient states that he was normal when he woke this morning but about 715 when he was making breakfast he noted left facial droop and slurred speech. He was seen at an outside hospital where he had a stroke workup including CTA of the head and neck as well as MRI of the brain. I was able to get copies of those reports. CTAs revealed no evidence of significant abnormality. MRI of the brain revealed a right frontal lobe hyperacute infarct. Because the patient is already on anticoagulant for paroxysmal A-fib, patient states he was advised that he could either follow-up as an outpatient or stay for admission. He elected to go home, however he then noted weakness in his left arm and leg today and this prompted his visit tonight. Patient has had prior strokes with symptoms of left-sided weakness, however has no significant residual deficit at baseline. [facility] Medical History Abnormal finding on diagnostic imaging of kidney Asthma CKD (chronic kidney disease) stage 3, GFR 30-59 ml/min CVA (cerebral vascular accident) Dyspnea on exertion Essential hypertension History of DVT (deep vein thrombosis) Mixed hyperlipidemia NSVT (nonsustained ventricular tachycardia) Paroxysmal atrial fibrillation Pulmonary fibrosis Home Medications alprazolam 0.25 mg tablet (Xanax) 0.25 mg PO TID PRN Anxiety 11/08/21 [History Last Taken Unknown] atorvastatin 20 mg tablet 20 mg PO QHS 11/08/21 [History Last Taken Unknown] multivitamin 1 tab PO DAILY 11/08/21 [History Last Taken Unknown] spironolactone 25 mg tablet (Aldactone) 12.5 mg PO DAILY 11/08/21 [History Last Taken Unknown] albuterol sulfate 90 mcg/actuation aerosol inhaler (ProAir HFA) 1 inh inhalation DAILY PRN Wheezing 11/10/21 [History Last Taken Unknown] budesonide-formoterol HFA 160 mcg-4.5 mcg/actuation aerosol inhaler (Symbicort) 2 puff inhalation Q12H PRN Wheezing 11/10/21 [History Last Taken Unknown] [id number] 250 mg-dha 90 mg-epa 160 [id number]-[id number] capsule (Ocuvite Adult 50 Plus) 2 cap PO QAM 11/10/21 [History Last Taken Unknown] metoprolol tartrate 25 mg tablet 12.5 mg (1/2 x 25 mg) PO BID #90 tabs 12/08/21 [Rx Last Taken Unknown] valsartan 160 mg tablet (Diovan) 160 mg PO BID #180 tabs 12/11/22 [Rx Last Taken Unknown] apixaban 5 mg tablet (Eliquis) 5 mg PO BID 12/21/22 [History Last Taken Unknown] flecainide 150 mg tablet 75 mg (1/2 x 150 mg) PO Q12H #90 tabs 07/04/23 [Rx Last Taken Unknown] aspirin 81 mg capsule 81 mg PO DAILY 07/16/23 [History Last Taken Unknown] metoprolol tartrate 50 mg tablet 50 mg PO BID 07/16/23 [History Last Taken Unknown] Allergy/AdvReac Type Severity Reaction Status Date / Time JUSTUS Inhibitors AdvReac Unknown Unknown Verified 12/21/22 10:49 amlodipine AdvReac Unknown Edema Verified 12/21/22 10:49 Sulfa (Sulfonamide AdvReac Unknown Unknown Verified 12/21/22 10:49 Antibiotics) Family History Father Renal failure Brother , 65 Heart disease Renal failure Surgical History History of cardiac radiofrequency ablation (~03/31/04) History of left heart catheterization (12/08/21) Social History Smoking Status: Former smoker how long ago did patient quit smokin alcohol intake: current alcohol intake frequency: 0-2 drinks per day details: 1-7 beers per week substance use type: does not use caffeine: No ROS ROS ED Constitutional Constitutional ED: Denies chills or fever(s) Eyes Eyes: Denies change in vision ENT ENT ED: Denies rhinorrhea or sore throat Cardiovascular Cardiovascular: Denies chest pain or palpitations Respiratory/Chest Respiratory/Chest: Denies cough or dyspnea Gastrointestinal Gastrointestinal: Denies abdominal pain, nausea or vomiting Genitourinary Genitourinary ED: Denies dysuria Musculoskeletal Musculoskeletal: Denies back pain or extremity pain Integumentary Denies Abrasions or rash Neurologic Neurologic: Reports weakness; Denies headache(s) Psychiatric Psychiatric: Denies anxiety or depression Allergic/Immunologic Allergic/Immunologic ED: Denies lip swelling or urticaria EXAM Physical Exam Const Vital Signs: 07/16/23 21:32 07/16/23 21:35 07/16/23 21:42 Temperature 97.4 F L 98.2 F Temperature Source Temporal Oral Pulse Rate 75 76 Respiratory Rate 19 H 16 Blood Pressure 216/109 H 216/109 H Blood Pressure Mean 144 144 Pulse Ox 95 97 97 Oxygen Delivery Method Room Air Room Air Room Air 07/16/23 21:56 07/16/23 22:05 07/16/23 22:30 Temperature Temperature Source Pulse Rate 69 67 58 L Respiratory Rate 16 20 H 15 Blood Pressure 193/95 H 169/89 H 174/89 H Blood Pressure Mean 127 115 117 Pulse Ox 96 95 96 Oxygen Delivery Method Room Air Room Air Room Air Positive well nourished and well developed General Appearance ED: well developed HEENT Reports moist mucous membranes Eyes EOMs intact bilaterally Chest Wall inspection of chest normal and palpation of chest normal Resp normal respiratory effort and clear to auscultation bilaterally Cardio Rate: bradycardia GI soft to palpation and non-tender Extremity normal to inspection Neuro oriented x3 Neuro Narrative: See NIH stroke score Psych mental status grossly normal Skin no wounds NIHSS NIHSS Initial: 1a Level of Consciousness: 0 1b LOC Questions (Score 2 if aphasic/stupor): 0 1c LOC Commands (Only score 1st attempt): 0 2 Best Gaze (If aphasic, use reflexive mvmts.): 0 3 Visual: 0 4 Facial Palsy: 2 5 Motor Arm Right (UN = amputation/fusion): 0 5 Motor Arm Left: 0 6 Motor Leg Right: 0 6 Motor Leg Left: 0 7 Limb ataxia (Only + if out of proportion): 0 8 Sensory (Aphasia/stupor=0 or 1, coma=2): 0 9 Best Language: 0 10 Dysarthria (mute, coma=2, intubated=UN): 1 11 Extinction and Inattention (only scored if +): 0 Total Score: 3 MDM MDM MDM Narrative Medical decision making narrative: Stroke alert called at the time of my initial evaluation. Patient sent for a noncontrast CT. While he was in CT I was able to pull up records from outside facility this morning and review his MRI and CTA results. IV line initiated. Labwork obtained to evaluate for leukocytosis, anemia, and electrolyte derangement. EKG obtained to evaluate for cardiac arrhythmia/ischemia. Chest x-ray obtained to evaluate for acute lung pathology, cardiac size, or mediastinal abnormality. History & Record Review Discussion w/independent historian: Patient Lab Data Attestation: I reviewed the patient's lab results. Labs: Laboratory Results - last 24 hr 07/16/23 21:44 WBC 9.3 RBC 4.70 Hgb 15.1 Hct 45.1 MCV 96.0 H MCH 32.1 H MCHC 33.5 RDW Std Deviation 45.2 H RDW Coeff of Bee 12.7 Plt Count 231 MPV 9.1 Immature Gran % (Auto) 0.200 Neut % (Auto) 70.0 Lymph % (Auto) 16.4 L Brown % (Auto) 11.1 H Eos % (Auto) 1.9 Baso % (Auto) 0.4 Absolute Neuts (auto) 6.5 Absolute Lymphs (auto) 1.52 Nucleated RBC % 0 PT 16.5 H INR 1.3 APTT 27.7 Sodium 137 Potassium 4.0 Chloride 104 Carbon Dioxide 27.0 Anion Gap 6 BUN 20 H Creatinine 1.39 H Estim Creat Clear Calc 42.37 Est GFR (MDRD) Af Amer 64 Est GFR (MDRD) Non-Af 53 L BUN/Creatinine Ratio 14.4 Glucose 99 Calcium 8.5 Troponin I High Sens 14 Radiography Chest X-Ray - ED: 1 View, Read by ED Physician, Chronic Changes and No Infiltrates Diagnostic Testing: Clinical Impression(s) from Imaging Studies Brain CT 07/16/23 21:35 IMPRESSION: Chronic involutional changes of the brain. Electronically Signed: Merrill Ng MD at 21:50 EDT , ADDENDUM: 07/16/232158 IMPRESSION: Chronic involutional changes of the brain. N.B. : The above Results were Read Back by Merrill Ng MD to Pamella Linares MD, and understanding confirmed on 07/16/2023 21:52:35 (ET). Electronically Signed: Merrill Ng MD at 21:50 EDT , Chest X-Ray 07/16/23 22:05 IMPRESSION: Normal x-ray examination of the chest. Electronically Signed: Merrill Ng MD at 22:28 EDT , EKG Initial EKG: Attestation: I personally reviewed and interpreted this EKG as follows: Interpretation: Sinus Rhythm (Sinus at 67 with no evidence of acute ischemia.) Treatment and Re-Evaluation Narrative: CBC was normal white count 9.3 with no left shift. INR is 1.3. Chemistry studies reveal a BUN of 20 and a creatinine 1.39. Glucose is 99. Troponin is normal at 14. Portable chest x-ray per my interpretation was chronic changes with no focal infiltrate. Radiology interpretation reviewed and agrees. EKG is sinus rhythm with no acute ischemia. I received a phone call from radiology indicating patient had no evidence of acute intracranial bleed. I spoke with [facility] neurology on the phone. He stated that we could let the patient's blood pressure run higher overnight as he is concerned the patient's symptoms may worsen if his blood pressure drops too significantly. Patient will require admission for further stroke workup. I will speak with hospitalist. Discharge Plan Triage Chief Complaint: Neuro S/Sx ED Provider: Pamella Linares Dx/Rx/DC Orders Clinical Impression: Acute CVA (cerebrovascular accident) Prescriptions: No Action Ocuvite Adult 50 Plus 250 mg (90 mg-160 mg) capsule 2 cap PO QAM albuterol sulfate [ProAir HFA] 90 mcg/actuation HFA aerosol inhaler 1 inh inhalation DAILY PRN (Reason: Wheezing) atorvastatin 20 mg tablet 20 mg PO QHS spironolactone [Aldactone] 25 mg tablet 12.5 mg PO DAILY alprazolam [Xanax] 0.25 mg tablet 0.25 mg PO TID PRN (Reason: Anxiety) multivitamin Tablet 1 tab PO DAILY budesonide-formoterol [Symbicort] 160-4.5 mcg/actuation HFA aerosol inhaler 2 puff inhalation Q12H PRN (Reason: Wheezing) Eliquis 5 mg tablet 5 mg PO BID metoprolol tartrate 50 mg tablet 50 mg PO BID aspirin 81 mg capsule 81 mg PO DAILY metoprolol tartrate 25 mg tablet 12.5 mg PO BID Qty: 90 4RF valsartan [Diovan] 160 mg tablet 160 mg PO BID Qty: 180 4RF flecainide 150 mg tablet 75 mg PO Q12H Qty: 90 3RF Primary Care Provider: Frida Gandara NP Referrals: Frida Gandara NP, PATTERN CHART WRITER-C [Primary Care Provider] - Disposition Disposition: Acute Care [facility]
--- NOTE | 2023-07-16 23:25 | PCM.HP.STD ---
[facility] General Date of Admission: 07/16/23 Date of Service: 07/16/23 Chief Complaint: Left facial droop, slurred speech and left-sided weakness worsening throughout the day. HPI Christopher ASTORGA, is a 78 M with a past medical history of essential hypertension, hyperlipidemia, overweight; BMI 27.3 this admission, chronic kidney disease; stage III, asthma, history of pulmonary fibrosis, history of NSVT, paroxysmal atrial fibrillation; on Eliquis, BASA, metoprolol and flecainide, history of cardiac radiofrequency ablation (2004), history of recurrent CVA; with left sided weakness (2016) and (~2018) with recent evaluation at [facility] this morning after he woke up at 7:15 AM and noticed left facial droop, slurred speech and weakness in his left leg which caused him to go to the ER for further evaluation and treatment. He underwent a CTA of the head and neck as well as an MRI of the brain which revealed a right frontal lobe hyperacute infarct. 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 Unfortunately, the patient chose to go home and then mowed his lawn and carried wood but then at approximately 9:30 PM he noticed worsening of his left facial droop, slurred speech and left-sided weakness particularly in his left leg so he decided to come in to [facility] ER for further evaluation and treatment. He states that this will be his third similar stroke stroke affecting his left side since 2017 but he is always able to fully recover without formal physical therapy and without residual deficits. The patient's son was present at the bedside in the ER and is also an RN and he reports that his father was previously on Xarelto but this agent was stopped after he could no longer receive financial assistance and that he has been on Eliquis without incident for the past ~2 years up until now. He denies associated fever, chills, nausea, vomiting, headache, lightheadedness, visual changes or other acute illness but he does admit to frequently biting his left lower lip along with persistently slurred speech and he states he did just take his evening dose of Eliquis. In the ER stroke alert was called and he was diagnosed with subacute right frontal CVA in the setting of treatment failure of combination of Eliquis and baby aspirin use to treat paroxysmal atrial fibrillation with patient currently in normal sinus rhythm on EKG with a blood pressure of 216/109 mmHg present on admission and an NIH-SS score of 3. The ER physician spoke with [facility] teleneu[facility] via phone with patient showing no evidence of bleeding on his most recent CT scan with recommendation for permissive hypertension as dropping his blood pressure acutely may worsen his symptoms. He was then admitted to the PCU for ongoing care for stay that is expected to be greater than 48 hours. [facility] Medical History Abnormal finding on diagnostic imaging of kidney Asthma CKD (chronic kidney disease) stage 3, GFR 30-59 ml/min CVA (cerebral vascular accident) Dyspnea on exertion Essential hypertension History of DVT (deep vein thrombosis) Mixed hyperlipidemia NSVT (nonsustained ventricular tachycardia) Paroxysmal atrial fibrillation Pulmonary fibrosis Home Medications alprazolam 0.25 mg tablet (Xanax) 0.25 mg PO TID PRN Anxiety 11/08/21 [History Last Taken Unknown] atorvastatin 20 mg tablet 20 mg PO QHS 11/08/21 [History Last Taken Unknown] multivitamin 1 tab PO DAILY 11/08/21 [History Last Taken Unknown] spironolactone 25 mg tablet (Aldactone) 12.5 mg PO DAILY 11/08/21 [History Last Taken Unknown] albuterol sulfate 90 mcg/actuation aerosol inhaler (ProAir HFA) 1 inh inhalation DAILY PRN Wheezing 11/10/21 [History Last Taken Unknown] budesonide-formoterol HFA 160 mcg-4.5 mcg/actuation aerosol inhaler (Symbicort) 2 puff inhalation Q12H PRN Wheezing 11/10/21 [History Last Taken Unknown] [id number] 250 mg-dha 90 mg-epa 160 sq-rrlv-goim-zeax capsule (Ocuvite Adult 50 Plus) 2 cap PO QAM 11/10/21 [History Last Taken Unknown] metoprolol tartrate 25 mg tablet 12.5 mg (1/2 x 25 mg) PO BID #90 tabs 12/08/21 [Rx Last Taken Unknown] valsartan 160 mg tablet (Diovan) 160 mg PO BID #180 tabs 09/18/23 [Rx Last Taken Unknown] apixaban 5 mg tablet (Eliquis) 5 mg PO BID 12/21/22 [History Last Taken Unknown] flecainide 150 mg tablet 75 mg (1/2 x 150 mg) PO Q12H #90 tabs 07/04/23 [Rx Last Taken Unknown] aspirin 81 mg capsule 81 mg PO DAILY 07/16/23 [History Last Taken Unknown] metoprolol tartrate 50 mg tablet 50 mg PO BID 07/16/23 [History Last Taken Unknown] Allergy/AdvReac Type Severity Reaction Status Date / Time JUSTUS Inhibitors AdvReac Unknown Unknown Verified 12/21/22 10:49 amlodipine AdvReac Unknown Edema Verified 12/21/22 10:49 Sulfa (Sulfonamide AdvReac Unknown Unknown Verified 12/21/22 10:49 Antibiotics) Family History Father Renal failure Brother , 65 Heart disease Renal failure Surgical History History of cardiac radiofrequency ablation (~03/31/04) History of left heart catheterization (12/08/21) Social History Smoking Status: Never smoker how long ago did patient quit smokin alcohol intake: current alcohol intake frequency: 0-2 drinks per day details: 1-7 beers per week substance use type: does not use caffeine: No ROS ROS Narrative Review of systems: General: Patient denies fever or chills. HENT: Denies headache, denies stuffy nose, denies sore throat EYES: Denies changes in vision or discharge from eyes. Resp: Denies cough, denies shortness of breath Cardiac: Denies chest pain, palpitations or heart racing. GI: Denies abdominal pain, denies changes in bowel, patient denies nausea or vomiting. : Denies changes in urination Extremity: Denies swelling Musculoskeletal: Patient denies arthralgias or myalgias. Neuro: Patient admits to persistent left facial droop, slurred speech and left leg weakness as per HPI. Heme: Denies any bleeding or bruising Skin: Denies rashes Psychiatric: No complaints voiced related uncontrolled depression or anxiety. Endocrine: No polyuria, polydipsia or polyphagia. The rest of the 14 point ROS was negative except for positives in HPI. Vital Signs Vital Signs Vital Signs: 07/16/23 21:32 07/16/23 21:35 07/16/23 21:42 Temperature 97.4 F L 98.2 F Temperature Source Temporal Oral Pulse Rate 75 76 Respiratory Rate 19 H 16 Blood Pressure 216/109 H 216/109 H Blood Pressure Mean 144 144 Pulse Ox 95 97 97 Oxygen Delivery Method Room Air Room Air Room Air 07/16/23 21:56 07/16/23 22:05 07/16/23 22:30 Temperature Temperature Source Pulse Rate 69 67 58 L Respiratory Rate 16 20 H 15 Blood Pressure 193/95 H 169/89 H 174/89 H Blood Pressure Mean 127 115 117 Pulse Ox 96 95 96 Oxygen Delivery Method Room Air Room Air Room Air Weight Weight: 179 lb 7.3 oz Body Mass Index (BMI) 27.3 Physical Exam Const alert, oriented x3, no apparent distress, average body habitus, healthy appearing and well nourished Constitutional Narrative: Obvious left facial droop and slurred speech noted. General Appearance: cooperative HEENT normocephalic, head/scalp atraumatic, hearing grossly normal bilaterally and moist oral mucous membranes Eyes PERRL, EOMs intact bilaterally and conjunctivae normal Neck no lymphadenopathy and supple Resp normal respiratory effort, no retractions, no use of accessory muscles and clear to auscultation bilaterally Cardio regular rate and regular rhythm GI normal to inspection, nondistended, normoactive bowel sounds, soft to palpation, non-tender and non-distended Extremity normal to inspection, full ROM and no clubbing, cyanosis or edema Neuro oriented x3, CN's II-XII intact bilaterally and moves all extremities Neuro Narrative: Patient has obvious left-sided facial droop and dysarthric speech but is otherwise neurologically intact and is able to follow commands and lift his legs against resistance and he retains good strength in his upper extremities with slightly 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 Sensorium / Orientation: awake, alert, oriented to person, oriented to place and oriented to time Speech: speech normal Psych affect normal Results Medical Records Data Attestation: I reviewed the patient's medical records Lab / Micro Data Attestation: I reviewed the patient's lab results. 07/16/23 21:44 07/16/23 21:44 Labs: Laboratory Results - last 24 hr 07/16/23 21:44: WBC 9.3, RBC 4.70, Hgb 15.1, Hct 45.1, MCV 96.0 H, MCH 32.1 H, MCHC 33.5, RDW Std Deviation 45.2 H, RDW Coeff of Bee 12.7, Plt Count 231, MPV 9.1, Immature Gran % (Auto) 0.200, Neut % (Auto) 70.0, Lymph % (Auto) 16.4 L, [facility] % (Auto) 11.1 H, Eos % (Auto) 1.9, Baso % (Auto) 0.4, Absolute Neuts (auto) 6.5, Absolute Lymphs (auto) 1.52, Nucleated RBC % 0, PT 16.5 H, INR 1.3, APTT 27.7, Sodium 137, Potassium 4.0, Chloride 104, Carbon Dioxide 27.0, Anion Gap 6, BUN 20 H, Creatinine 1.39 H, Estim Creat Clear Calc 42.37, Est GFR (MDRD) Af Amer 64, Est GFR (MDRD) Non-Af 53 L, BUN/Creatinine Ratio 14.4, Glucose 99, Calcium 8.5, Troponin I High Sens 14 Imaging Radiology Impression Brain CT 07/16/23 21:35 IMPRESSION: Chronic involutional changes of the brain. Electronically Signed: Merrill Ng MD at 21:50 EDT Reading Location ID and State: [id number] / [facility] Tel , Service support , ADDENDUM: 07/16/232158 IMPRESSION: Chronic involutional changes of the brain. N.B. : The above Results were Read Back by Merrill Ng MD to Pamella Linares MD, and understanding confirmed on 07/16/2023 21:52:35 (ET). Electronically Signed: Merrill Ng MD at 21:50 EDT Reading Location ID and State: [id number] / [facility] Tel , Service support , Chest X-Ray 07/16/23 22:05 IMPRESSION: Normal x-ray examination of the chest. Electronically Signed: Merrill Ng MD at 22:28 EDT , Assessment & Plan Assessment/Plan (1) Acute CVA (cerebrovascular accident): (2) Paroxysmal atrial fibrillation: (3) History of cardiac radiofrequency ablation: PLAN: Plan 1. Acute right frontal CVA; with left-sided weakness, left facial droop and slurred speech - recurrent (2017) and (~2019) with recent evaluation at [facility] this morning and subsequent discharge - Admit to ICU for treatment under the stroke protocol. Check carotid doppler to evaluate for stenosis. Recheck MRI of the brain to evaluate for evidence of worsening CVA. Check echocardiogram to evaluate LVEF. Continue BASA and statin and switch to alternative NOAC in the AM. Give Tylenol prn pain or fever. 2. Paroxysmal atrial fibrillation; on baby aspirin and Eliquis with suspected treatment failure causing #1 - Patient should likely be switched back to Xarelto vs an alternative agent with treatment failure of combination of Eliquis and BASA. If Xarelto is chosen to restart he will need help to defray the cost as he says currently it would be ~$700/mo. - which he cannot afford. 3. Essential hypertension - Hold scheduled antihypertensives to allow for 'permissive hypertension' as per teleneurology recommendations. 4. Hyperlipidemia - Resume statin and check Lipid Profile this admission in light of #1. 5. Overweight; BMI 27.3 this admission - Weight loss will be recommended. Check TSH. 6. Chronic kidney disease; stage III - Stable. 7. Asthma - No evidence of acute flare. Give nebulizers prn. 8. History of pulmonary fibrosis - Stable. 9. History of NSVT - Noted. 10. History of cardiac radiofrequency ablation (2004) - Noted. 11. DVT prophylaxis - SCD's for now with recommendation to switch patient back to Xarelto in AM if [facility] agrees. Total time: Approximately 55 minutes. Charges/Coding Visit Charges Inpatient E&M: 67970 Init Hosp L2
--- NOTE | 2023-07-16 23:54 | CDU_ITS ---
Reason For Study: acute right frontal CVA Rt. Velocities/BP Lt. Velocities/BP Prox CCA 57.9/12.6 cm/sec. Prox CCA 68.3/12.6 cm/sec. Mid CCA 53.2/10.7 cm/sec. Mid CCA 57.0/10.7 cm/sec. Dist CCA 44.7/9.7 cm/sec. Dist CCA 50.4/9.7 cm/sec. Prox ICA 76.8/18.2 cm/sec. Prox ICA 39.0/11.6 cm/sec. Mid ICA 71.1/19.2 cm/sec. Mid ICA 41.9/13.5 cm/sec. Dist ICA 61.6/14.8 cm/sec. Dist ICA 34.6/6.4 cm/sec. Rt. ICA/CCA = 1.4. Lt. ICA/CCA = .7. Prox ECA 74.0/8.8 cm/sec. Prox ECA 39.0/5.0 cm/sec. Rt. Vert. 36.2/6.9 cm/sec. Lt. Vert. 39.0/6.0 cm/sec. Right Extracranial There is heterogeneous, irregular atherosclerotic plaque noted in the right common carotid artery. There is heterogeneous, irregular atherosclerotic plaque noted in the right internal carotid artery. There is intimal thickening but no significant atherosclerotic plaque noted in the right external carotid artery. Antegrade flow is noted in the right vertebral artery. Left Extracranial There is homogeneous, smooth atherosclerotic plaque noted in the left common carotid artery. There is heterogeneous, irregular atherosclerotic plaque noted in the left internal carotid artery. There is intimal thickening but no significant atherosclerotic plaque noted in the left external carotid artery. Antegrade flow is noted in the left vertebral artery. Procedure Carotid Duplex 60409. This is a Carotid Duplex examination using B-mode, color flow and specral Doppler. The exam was diagnostic. Exam performed portable in ICU/CCU. VL/Carotid Duplex Ultrasound Interpretation Summary Mild (<50%) stenosis right extracranial internal carotid. Mild (<50%) stenosis left extracranial internal carotid. Patent and antegrade vertebrals bilaterally. Ordering Physician: Stephane Mao Performed By: Dima Romero RVT
--- NOTE | 2023-07-16 23:54 | ECHOD_ITS ---
Reason For Study: TIA/CVA Procedure This was a 2D Doppler, Color Flow transthoracic echocardiogram. Exam performed portable in patient room. Left Ventricle Normal LV size. The estimated ejection fraction is 65 %. Diastolic function is indeterminate. No regional wall motion abnormalities noted. Right Ventricle Normal RV size. Normal systolic function. Atria The left atrium is mildly enlarged. Normal right atrium. No doppler evidence for ASD. Mitral Valve There is no mitral valve stenosis. Mild (1+) mitral valve insufficiency. Tricuspid Valve There is no tricuspid stenosis. Trivial tricuspid valve insufficiency. Unable to estimate RV systolic pressure due to insufficient tricuspid regurgitant envelope. Aortic Valve Trisinus/trileaflet aortic valve. There is no aortic stenosis. Mild (1+) aortic valve insufficiency. Pulmonic Valve There is no pulmonic valvular stenosis. Trivial pulmonic valve insufficiency identified. Great Vessels Normal aortic root. Pericardium/Pleural No pericardial effusion. MMode/2D Measurements & Calculations LVIDd: 4.0 cm IVSd: 1.3 cm LVOT diam: 2.3 cm LVIDs: 2.6 cm LVPWd: 1.2 cm LVOT area: 4.3 cm2 RVDd: 4.3 cm FS: 34.1 % Ao root diam: 3.5 cm LAV(MOD-bp): 69.8 ml LVAd ap4: 23.7 cm2 LAV(MOD-bp) Indexed: 36.5 ml/m2 LVLd ap4: 7.9 cm LAV(MOD-sp2): 82.6 ml EDV(MOD-sp4): 57.1 ml LAV(MOD-sp4): 57.1 ml EDV(sp4-el): 60.7 ml LVAs ap4: 12.4 cm2 LVLs ap4: 6.6 cm ESV(MOD-sp4): 20.2 ml ESV(sp4-el): 19.9 ml EF(MOD-sp4): 64.7 % EF(sp4-el): 67.2 % LVAd ap2: 24.0 cm2 SV(MOD-sp4): 37.0 ml SV(MOD-sp2): 34.4 ml LVLd ap2: 8.5 cm EDV(MOD-sp2): 55.8 ml EDV(sp2-el): 57.2 ml LVAs ap2: 12.4 cm2 LVLs ap2: 6.7 cm ESV(MOD-sp2): 21.3 ml ESV(sp2-el): 19.5 ml EF(MOD-sp2): 61.7 % SV(sp4-el): 40.8 ml LA dimension(2D): 4.3 cm LA A4 area: 20.3 cm2 RA A4 area: 24.6 cm2 TAPSE: 2.5 cm Time Measurements MV dec time: 0.57 sec Doppler Measurements & Calculations MV E max jay: 64.0 cm/sec Lat Peak E' Jay: 8.0 cm/sec Med Peak E' Jay: 6.9 cm/sec MV A max jay: 103.3 cm/sec E/E' lat: 8.0 E/E' med: 9.2 MV E/A: 0.62 Ao V2 max: 124.7 cm/sec AI max jay: 413.7 cm/sec MV dec slope: 111.8 cm/sec2 Ao max P.2 mmHg AI max P.6 mmHg Ao V2 mean: 75.1 cm/sec Ao mean P.7 mmHg AI dec slope: 155.2 cm/sec2 Ao V2 VTI: 30.0 cm AI P1/2t: 780.5 msec AV (velocity ratio): 0.92 ANGELI(I,D): 4.0 cm2 ANGELI(V,D): 3.2 cm2 LV V1 max: 93.6 cm/sec SV(LVOT): 118.5 ml PA V2 max: 71.0 cm/sec LV V1 max P.5 mmHg PA max PG (full): 1.1 mmHg LV V1 mean P.8 mmHg LV V1 mean: 62.5 cm/sec LV V1 VTI: 27.6 cm ECHO/Echo Complete Interpretation Summary The estimated ejection fraction is 65 %. Diastolic function is indeterminate. The left atrium is mildly enlarged. Mild (1+) mitral valve insufficiency. Mild (1+) aortic valve insufficiency. Ordering Physician: Stephane Mao Performed By: Coretta Sahni, RDCS
[2023-07-17] VITALS (10 sets, daily range): BP systolic 170–191; BP diastolic 75–91; PULSE 43–61; RESP 13–19; TEMP 36.4–36.7; O2SAT 96–99; BMI 26.1
[2023-07-17] MEDS: ALPRAZolam 0.25 MG Tablet PO ×2 (00:22→20:46)
[2023-07-17] MEDS: Acetaminophen 325 MG Tablet 650 MG PO ×2 (00:22→20:46)
[2023-07-17 00:53] LABS: Thyroid Stim Hormone (TSH) 1.62 uIU/mL (0.358-3.74)
[2023-07-17 02:43] LABS: Hemoglobin A1c 5.4 % (3.8-5.6)
--- NOTE | 2023-07-17 06:55 | PCM.PN.HOSP ---
Reason for Visit Reason for Visit: Left facial droop/slurred speech/left-sided weakness Subjective Subjective Mr. Mobley is a 78-year-old white male who presented to the emergency department at [facility] at 930 last evening for new onset left facial droop, slurred speech, and left-sided weakness. When he awoke on the morning of presentation he was normal without any deficits. That was about 715 and then while he was making breakfast he noted some left facial droop and slurred speech. He was seen in an outside hospital where he had a stroke workup including a CTA of the head and neck as well as an MRI of the brain. Those reports were obtained by the emergency department and the CT at that time showed no evidence of significant abnormality in the MRI of the brain revealed a right frontal lobe acute hyperacute infarct. The patient is already on baseline anticoagulation for paroxysmal atrial fibrillation and he was advised that he can either follow-up as an outpatient or stay for the admission and he will likely be at home. However after going back home he then noted weakness in his left arm and leg which him to come the emergency department here. He does have a prior history of strokes with left-sided weakness however had no residual baseline deficit. The ER did speak with [facility] neurology after CT here reported no evidence of acute intercranial bleed and they indicated to allow for per minutes of hypertension and admission for further stroke workup. Vital signs on presentation showed a temperature of 97.4, heart rate was 75, respiratory rate 19, initial blood pressure was 216/109 and was 174/89 when he left the emergency department with an oxygen saturation of 95% on room air. His CBC was overtly unremarkable. Coags are slightly abnormal with an elevated PT at 16.5, INR 1.3, 27.7. Chemistry panel shows normal electrolytes with a slightly elevated BUN and creatinine 20 and 1.39 respectively with an unknown baseline. TSH was normal. At baseline he is on apixaban 5 mg p.o. twice daily and a baby aspirin. He also takes flecainide for his A-fib. He was admitted to the ICU for stroke protocol with carotid duplex and MRI pending. Neurology was also consulted for assistance in his management. Patient states that his left-sided weakness is pretty much resolved. He reports ongoing mild left facial droop and feels that his speech is improved but not quite his norm yet. Most recent NIH was a 3 for dysarthria and left facial droop. Objective Data Objective Data Vital Signs: Vital Signs Temp Pulse Resp BP Pulse Ox O2 Del Method O2 Flow Rate 97.8 F 43 L 13 185/81 H 99 Nasal Cannula 3.5 07/17/23 04:15 07/17/23 06:00 07/17/23 06:00 07/17/23 06:00 07/17/23 06:00 07/17/23 06:00 07/17/23 06:00 Oxygen Flow Rate (L/min) 3.5 Oxygen Delivery Method Nasal Cannula Weight: 78 kg Body Mass Index (BMI) 26.1 Intake & Output: Intake and Output for Last 24 Hours 07/15/23 07/16/23 07/17/23 23:59 23:59 23:59 Output Total 450 / 450 Balance -450 / -450 Lab / Micro Data 07/16/23 21:44 07/16/23 21:44 Labs: Laboratory Results - last 24 hr 07/16/23 21:44: WBC 9.3, RBC 4.70, Hgb 15.1, Hct 45.1, MCV 96.0 H, MCH 32.1 H, MCHC 33.5, RDW Std Deviation 45.2 H, RDW Coeff of Bee 12.7, Plt Count 231, MPV 9.1, Immature Gran % (Auto) 0.200, Neut % (Auto) 70.0, Lymph % (Auto) 16.4 L, Page % (Auto) 11.1 H, Eos % (Auto) 1.9, Baso % (Auto) 0.4, Absolute Neuts (auto) 6.5, Absolute Lymphs (auto) 1.52, Nucleated RBC % 0, PT 16.5 H, INR 1.3, APTT 27.7, Sodium 137, Potassium 4.0, Chloride 104, Carbon Dioxide 27.0, Anion Gap 6, BUN 20 H, Creatinine 1.39 H, Estim Creat Clear Calc 42.37, Est GFR (MDRD) Af Amer 64, Est GFR (MDRD) Non-Af 53 L, BUN/Creatinine Ratio 14.4, Glucose 99, Calcium 8.5, Troponin I High Sens 14 07/16/23 21:49: Hemoglobin A1c 5.4, TSH 1.62 Radiography Diagnostic Testing: Radiology Impression Brain CT 07/16/23 21:35 IMPRESSION: Chronic involutional changes of the brain. Electronically Signed: Merrill Ng MD at 21:50 EDT Reading Location ID and State: [id number] / [employer] Tel , Service support , ADDENDUM: 07/16/232158 IMPRESSION: Chronic involutional changes of the brain. N.B. : The above Results were Read Back by Merrill Ng MD to Pamella Linares MD, and understanding confirmed on 07/16/2023 21:52:35 (ET). Electronically Signed: Merrill Ng MD at 21:50 EDT , Chest X-Ray 07/16/23 22:05 IMPRESSION: Normal x-ray examination of the chest. Electronically Signed: Merrill Ng MD at 22:28 EDT , Physical Exam Const alert, oriented x3, no apparent distress, average body habitus and well nourished Constitutional Narrative: Very pleasant, older, white male, sitting up in bed, appears comfortable and nontoxic HEENT head/scalp atraumatic and moist oral mucous membranes HEENT Narrative: Dentures in place, Mallampati 2-3, no thrush Head and Scalp: normocephalic Resp normal respiratory effort, no retractions, no use of accessory muscles and clear to auscultation bilaterally Auscultation: Negative for rales, rhonchi or wheezes Cardio regular rhythm, S1 normal heart sound, S2 normal heart sound, no murmurs, no rub, no gallops and no clicks Cardio Narrative: Bradycardic GI normal to inspection, nondistended, normoactive bowel sounds, soft to palpation and non-tender Extremity no clubbing, cyanosis or edema Extremity Narrative: Pedal pulses are 2+ Neuro oriented x3, moves all extremities, no focal motor deficits and no sensory deficits noted Neuro Narrative: Slight facial droop on the left but all other cranial nerves are intact, no significant weakness in the left Assessment & Plan Assessment/Plan (1) Facial droop: (2) Left-sided weakness: (3) Slurred speech: (4) Bradycardia: PLAN: Plan Left-sided weakness/slurred speech/facial droop -Had negative MRI and CTA of the head and neck at [facility] on day of admission -CT here was negative for bleed and showed only chronic involutional changes of the brain -NIH is stable at 3 for dysarthria and a 2 for facial palsy on the left -LDL is less than 70 and currently 69 -Continue atorvastatin increased to 40 mg -Continue home aspirin -Apixaban on hold await neurology input as he was on apixaban at the time of his symptoms -Will restart apixaban if MRI negative -MRI pending here -Echocardiogram pending -Carotid duplex pending -PT/OT consultation -Allow for permissive hypertension and hold home antihypertensives for now managing with as needed labetalol and hydralazine -Neurology consultation pending Bradycardia -On review of records he seems to run low at baseline -Has history of radiofrequency ablation for atrial fibrillation -Patient states he recently had an up titration of his beta-juan and states that he seems much more fatigued especially when he goes out walking is wondering if it is a little bit too much -This was done down in [place] and his initial dose was 25 mg and they increased it to 50 mg twice daily History of nonsustained VT/PAF -Previous EP evaluation -Beta-juan on hold to allow for permissive hypertension but will start as soon as able -Radiofrequency ablation done in 2004 for ventricular fibrillation -Continue home apixaban -Continue home flecainide HTN/HPL -Antihypertensives on hold to allow for permissive hypertension -Continue home statin but increase from 20 to 40 mg with acute stroke concern -Will start to bring down blood pressure when appropriate per discussion with neurology CKD stage IIIa -Baseline creatinine seems to run between 1.1 and 1.3 -Appears to be stable -Patient does follow with nephrology History of DVT -DOAC on hold for acute stroke -Will restart if MRI negative or if cardiology agrees to restart Asthma/pulmonary fibrosis/nocturnal hypoxia -Chronic and stable on room air -Patient does wear 3.5 liters at night while sleeping DVT prophylaxis -SCDs for now and will restart home DOAC if MRI is negative CODE STATUS -Reviewed code options with him and he would like to be DNR CCA with no intubation Charges/Coding Visit Charges Inpatient E&M: 17513 Subs Hosp L2
[2023-07-17 07:00] LABS: Cholesterol 129 mg/dL (200); High Density Lipoprotein 44 mg/dL; Triglycerides 81 mg/dL; Very Low Density Lipoprotein 16 mg/dL (5-40)
--- NOTE | 2023-07-17 10:00 | EKG12_ITS ---
Test Reason : arrythmia Blood Pressure : / mmHG Vent. Rate : 049 BPM Atrial Rate : 049 BPM P-R Int : 338 ms QRS Dur : 100 ms QT Int : 504 ms P-R-T Axes : 079 -08 -06 degrees QTc Int : 455 ms Sinus bradycardia with 1st degree A-V block Nonspecific ST abnormality Abnormal ECG When compared with ECG of 16-JUL-2023 21:58, MANUAL COMPARISON REQUIRED, DATA IS UNCONFIRMED Confirmed by SUHAS SOTO, LITO ([id number]), newspaper editor managing GERARD ALBARRAN ([id number]) on 07/23/2023 1:51:25 PM Referred By: Confirmed By:NORMA DAI MD
--- NOTE | 2023-07-17 10:00 | MRI_ITS ---
We are attempting to reach an attending provider to discuss findings. An addendum with communication details will be sent when the communication is complete. STUDY: MRI BRAIN WITHOUT CONTRAST REASON FOR EXAM: Male, 78 years old. Acute right frontal CVA TECHNIQUE: Standardized multiplanar fat and water weighted pulse sequences were obtained. COMPARISON: Head CT dated July 16, 2023 FINDINGS: A small acute cortical infarct is present in the posterior superior aspect of the right frontal lobe extending into the postcentral gyrus in the anterior superior aspect of the left parietal lobe as well. No additional acute infarcts are seen. There is mild cerebral atrophy with widening of the extra-axial spaces and ventricular dilatation. There are a limited number of small white matter hyperintensities, distributed throughout the deep white matter tracts of the cerebral hemispheres, consistent with mild chronic white matter ischemic changes. Normal T2* images of the brain without demonstrated susceptibility artifact. There is no demonstrated hemosiderin stain. No hydrocephalus or midline shift is present. There is moderate weeks opacification of the left mastoid air cells. Normal bilateral basal ganglia. Normal thalami. There is no extra-axial fluid accumulation. Normal flow voids within the major intracranial circulation suggesting patency by spin echo criteria. Normal sella turcica, pituitary gland, infundibular stalk, optic chiasm and hypothalamus. Normal tectal plate and pineal gland. Normal midbrain, lauren and medulla. Normal cerebellum. Normal basal cisterns. Normal bilateral temporal bones. Normal bilateral internal auditory canals. No demonstrated orbital abnormality, within the constraints of a routine brain study. Normal visualized paranasal sinuses. Normal calvarium and skull base. Normal visualized soft tissue structures. Normal visualized upper cervical spine. MRI/Brain without Contrast IMPRESSION: Acute right frontoparietal junction cortical infarct 1. A small acute cortical infarct is present in the posterior superior aspect of the right frontal lobe extending into the postcentral gyrus in the anterior superior aspect of the left parietal lobe as well. No additional acute infarcts are seen. Electronically Signed: Olvin Espinal MD at 11:03 EDT ,
--- NOTE | 2023-07-17 11:10 | CASEMGMT ---
RN CM Assessment Face to Face with patient for initial transition planning/care coordination assessment. RN CM introduced self and role at [facility], pt voices understanding. Pt is A&Ox4 and is resting comfortably in the chair and is calm. Care providers, pharmacy, and demographics verified. Admitting dx: CVA LACE Strata: 2 PCP: Frida Gandara Specialists: Pulmonary in [place], [place]. [facility]. Preferred Pharmacy: [facility] in [place] Insurance: [facility] A/B only Prescription Benefit: None. Pt educated about Good Rx and also that this RN CM will follow Rx costs at time of DC. LNOK: Chandra Mobley (Son), Betty Mobley (W) Living Arrangements: Pt lives with his in a single story home with a BM with HR with 2 steps to enter ADLs/IADLs: Ind Transportation: self, , son DME: [employer] at home ( uses). Walk in shower with GB and seat. Raised toilet seat. Pt states that he wears 3.5L of O2 through [facility] in [place]. TC to [facility] at this time and they state that the pt current order is 2L HS via [place]. Will follow. Pt states that he has an oxygen concentrator. Pulse Ox. No portable tanks. HHC/SNF: Denies history or needs Pt?s goal: Home Plan: 6-Click is 20. Pt states that he feels good now. Pt states that he is wanting to DC home once medically ready. Pt denies the need for HHC or OP therapy at this time. PT/OT/ and ST evals are pending. CM to follow for oxygen needs as well as medication costs. CM to follow therapy recommendations as well. CM to follow for safe DC home from [facility]. Abilio Wakefield RN, CM
[2023-07-17] MEDS: Flecainide 150 MG Tablet 75 MG PO ×2 (11:27→20:46)
[2023-07-17] MEDS: Aspirin 81 MG TAB.CHEW PO (11:27)
--- NOTE | 2023-07-17 12:01 | CASEMGMT ---
SW completed a PHQ 9 with patient as he had a Stroke. Patient scored a 2 which indicates patient has minimal depression. Patient declined any need for resources. Gayle GARNER
[2023-07-17] MEDS: Loratadine 10 MG Tablet PO (13:19)
[2023-07-17 14:01] LABS: Bedside Glucose 106 mg/dL (74-106)
--- NOTE | 2023-07-17 16:24 | STROKE.CONS ---
Assessment and Plan: Stroke Assessment/Plan DWAIN ASTORGA is a 78 yo RH M with a history of atrial fibrillation on eliquis/Asa, prior ischemic stroke 2016 and Dec 2022 without residual deficits who presents for evaluation of left face/arm/leg weakness and dysarthria. Patient reports LKN 07/16/23 745a when he developed dysarthria. He presented to an OSH ER, OSH CTA reportedly negative. and then was released home. He then had weakness in the left arm and leg and presented to [place] ER. Patient had MRI brain 07/17/23 that shows acute right MCA infarct. Patient admitted to [place]. Patient reports he takes his eliquis - no missed doses. Currently he is on Asa/lipitor. Neurological examination shows mild dysarthria. NIHSS-1 (dys-1). Patient still feels his left side is weak in the arm and leg. ASSESSMENT/PLAN: Acute right MCA ischemic stroke. Stroke mechanism is likely cardioembolism (due to paroxysmal atrial fibrillation). Stroke work-up completed. Recommend resuming home eliquis. Recommend PT/OT consults and disposition per their recommendations. Follow-up in neurology clinic as outpatient. Please call us with further stroke related questions. Primary team messaged on backline. HPI Consult Data Date of Consult: 07/17/23 HPI Narrative HPI Narrative: DWAIN ASTORGA is a 78 yo RH M with a history of atrial fibrillation on eliquis/Asa, prior ischemic stroke 2016 and Dec 2022 without residual deficits who presents for evaluation of left face/arm/leg weakness and dysarthria. Patient reports LKN 07/16/23 745a when he developed dysarthria. He presented to an OSH ER and then was released home. He then had weakness in the left arm and leg and presented to [place] ER. Patient had MRI brain 07/17/23 that shows acute right MCA infarct. Patient admitted to [place]. [facility] Medical History Abnormal finding on diagnostic imaging of kidney Asthma CKD (chronic kidney disease) stage 3, GFR 30-59 ml/min CVA (cerebral vascular accident) Dyspnea on exertion Essential hypertension History of DVT (deep vein thrombosis) Mixed hyperlipidemia NSVT (nonsustained ventricular tachycardia) Paroxysmal atrial fibrillation Pulmonary fibrosis Home Medications alprazolam 0.25 mg tablet (Xanax) 0.25 mg PO TID PRN Anxiety 11/08/21 [History Last Taken Unknown] atorvastatin 20 mg tablet 20 mg PO QHS 11/08/21 [History Last Taken Unknown] multivitamin 1 tab PO DAILY 11/08/21 [History Last Taken Unknown] spironolactone 25 mg tablet (Aldactone) 12.5 mg PO DAILY 11/08/21 [History Last Taken Unknown] albuterol sulfate 90 mcg/actuation aerosol inhaler (ProAir HFA) 1 inh inhalation DAILY PRN Wheezing 11/10/21 [History Last Taken Unknown] [id number] 250 mg-dha 90 mg-epa 160 [id number]-[id number] capsule (Ocuvite Adult 50 Plus) 2 cap PO QAM 11/10/21 [History Last Taken Unknown] metoprolol tartrate 25 mg tablet 12.5 mg (1/2 x 25 mg) PO BID #90 tabs 12/08/21 [Rx Last Taken Unknown] valsartan 160 mg tablet (Diovan) 160 mg PO BID #180 tabs 12/11/22 [Rx Last Taken Unknown] apixaban 5 mg tablet (Eliquis) 5 mg PO BID 12/21/22 [History Last Taken Unknown] flecainide 150 mg tablet 75 mg (1/2 x 150 mg) PO Q12H #90 tabs 07/04/23 [Rx Last Taken Unknown] aspirin 81 mg capsule 81 mg PO DAILY 07/16/23 [History Last Taken Unknown] metoprolol tartrate 50 mg tablet 50 mg PO BID 07/16/23 [History Last Taken Unknown] cetirizine 10 mg tablet (24Hour Allergy) 10 mg PO DAILY PRN allergies 07/17/23 [History Last Taken Unknown] Allergy/AdvReac Type Severity Reaction Status Date / Time JUSTUS Inhibitors AdvReac Unknown Unknown Verified 12/21/22 10:49 amlodipine AdvReac Unknown Edema Verified 12/21/22 10:49 Sulfa (Sulfonamide AdvReac Unknown Unknown Verified 12/21/22 10:49 Antibiotics) Family History Father Renal failure Brother , 65 Heart disease Renal failure Surgical History History of cardiac radiofrequency ablation (~03/31/04) History of left heart catheterization (12/08/21) Social History Smoking Status: Never smoker how long ago did patient quit smokin alcohol intake: current alcohol intake frequency: 0-2 drinks per day details: 1-7 beers per week substance use type: does not use caffeine: No Vital Signs Vital Signs Vital Signs: 07/16/23 21:32 07/16/23 21:35 07/16/23 21:42 Temperature 97.4 F L 98.2 F Temperature Source Temporal Oral Pulse Rate 75 76 Respiratory Rate 19 H 16 Respiratory Effort Respiratory Depth Respiratory Pattern Blood Pressure 216/109 H 216/109 H Blood Pressure Mean 144 144 Blood Pressure Source Blood Pressure Position Blood Pressure Location Pulse Ox 95 97 97 Oxygen Delivery Method Room Air Room Air Room Air Oxygen Flow Rate (L/min) 07/16/23 21:56 07/16/23 22:05 07/16/23 22:30 Temperature Temperature Source Pulse Rate 69 67 58 L Respiratory Rate 16 20 H 15 Respiratory Effort Respiratory Depth Respiratory Pattern Blood Pressure 193/95 H 169/89 H 174/89 H Blood Pressure Mean 127 115 117 Blood Pressure Source Blood Pressure Position Blood Pressure Location Pulse Ox 96 95 96 Oxygen Delivery Method Room Air Room Air Room Air Oxygen Flow Rate (L/min) 07/16/23 23:00 07/16/23 23:30 07/16/23 23:00 Temperature 98.2 F Temperature Source Pulse Rate 58 L 60 60 Respiratory Rate 13 16 16 Respiratory Effort Respiratory Depth Respiratory Pattern Blood Pressure 202/80 H 201/89 H 201/89 H Blood Pressure Mean 120 126 126 Blood Pressure Source Blood Pressure Position Blood Pressure Location Pulse Ox 95 92 92 Oxygen Delivery Method Room Air Room Air Oxygen Flow Rate (L/min) 07/17/23 00:15 07/17/23 00:23 07/17/23 01:56 Temperature 98.0 F Temperature Source Temporal Pulse Rate 56 L Respiratory Rate 18 Respiratory Effort Normal Non-Labored Respiratory Depth Normal Respiratory Pattern Normal Blood Pressure 191/81 H Blood Pressure Mean 117 Blood Pressure Source Monitor Blood Pressure Position Semi-Fowlers Blood Pressure Location Right Arm Pulse Ox 97 98 Oxygen Delivery Method Room Air Room Air Nasal Cannula Oxygen Flow Rate (L/min) 3.5 07/17/23 04:15 07/17/23 06:00 07/17/23 10:00 Temperature 97.8 F Temperature Source Temporal Pulse Rate 56 L 43 L 50 L Respiratory Rate 18 13 14 Respiratory Effort Respiratory Depth Respiratory Pattern Blood Pressure 183/75 H 185/81 H 186/83 H Blood Pressure Mean 111 115 117 Blood Pressure Source Monitor Monitor Monitor Blood Pressure Position Semi-Fowlers Semi-Fowlers Semi-Fowlers Blood Pressure Location Right Arm Right Arm Right Arm Pulse Ox 96 99 99 Oxygen Delivery Method Room Air Nasal Cannula Room Air Oxygen Flow Rate (L/min) 3.5 07/17/23 10:00 07/17/23 14:22 Temperature 98.1 F 97.5 F L Temperature Source Temporal Temporal Pulse Rate 50 L 54 L Respiratory Rate 14 16 Respiratory Effort Respiratory Depth Respiratory Pattern Blood Pressure 186/83 H 170/78 H Blood Pressure Mean 117 108 Blood Pressure Source Monitor Monitor Blood Pressure Position Semi-Fowlers Semi-Fowlers Blood Pressure Location Right Arm Right Arm Pulse Ox 99 98 Oxygen Delivery Method Room Air Room Air Oxygen Flow Rate (L/min) Weight Weight: 78 kg Body Mass Index (BMI) 26.1 NIHSS NIHSS Nursing Documentation NIHSS Nursing Documentation: NIHSS: Ischemic Stroke/TIA Start: 07/17/23 00:03 Text: For PCU Patients: NIH and Neuro Check every 4 Status: Active hours, PRN and with change in RN caregiver. Freq: [id number] Protocol: Activity Type Activity Date Activity User E-sign Co-sign Detail Recorded Client Recorded Date Recorded By Document 07/17/23 14:00 [facility] Desktop 07/17/23 14:25 [facility] 07/17/23 14:00 NIH Stroke Scale [NIHSS] A score of 0 is normal or asymptomatic . Total possible score is 42. Inpatient: RN or Physician to activate a stroke alert for onset of new stroke symptoms or with NIHSS increase >/= 3 points. Following change in neurological status, NIHSS will be performed per physician order or more frequently PRN. -1a. Level of Consciousness Alert; keenly responsive -1b. LOC Questions Answers BOTH questions correctly. -1c. LOC Commands Performs both tasks correctly . -2. Best Gaze Normal -3. Visual No visual loss -4. Facial Palsy Minor paralysis (flattened nasolabial fold , asymmetry on smiling) -5a. Left Arm No drift; arm holds 90 (or 45 ) degrees for full 10 seconds -5b. Right Arm No drift; arm holds 90 (or 45 ) degrees for full 10 seconds -6a. Left Leg No drift; leg holds 30-degree position for full 5 seconds -6b. Right Leg No drift; leg holds 30-degree position for full 5 seconds -7. Limb Ataxia Absent -8. Sensory Normal; no sensory loss -9. Best Language No aphasia; normal -10. Dysarthria Mild-to- moderate dysarthria; -11. Extinction and Inattention No abnormality -Total 2 Query Text:A score of 0 is normal or asymptomatic. Total possible score is 42 . ED: Notify Physician for NIHSS increase by > / = 3 points. Inpatient: RN or Physician to activate a stroke alert for NIHSS increase of > / = 3 points. NIHSS 1a. Level of Consciousness: Alert; keenly responsive 1b. LOC Questions: Answers BOTH questions correctly. 1c. LOC Commands: Performs both tasks correctly. 2. Best Gaze: Normal 3. Visual: No visual loss 4. Facial Palsy: Normal symmetrical movements 5a. Left Arm: No drift; arm holds 90 (or 45) degrees for full 10 seconds 5b. Right Arm: No drift; arm holds 90 (or 45) degrees for full 10 seconds 6a. Left Leg: No drift; leg holds 30-degree position for full 5 seconds 6b. Right Leg: No drift; leg holds 30-degree position for full 5 seconds 7. Limb Ataxia: Absent 8. Sensory: Normal; no sensory loss 9. Best Language: No aphasia; normal 10. Dysarthria: [id number] dysarthria; 11. Extinction and Inattention: No abnormality Total: 1 Physical Exam Neuro Neuro Narrative: Neurological examination: General: The patient appears nutritionally appropriate, well-groomed, and appears comfortable in no acute distress. Mental Status: The patient?s mental status was normal including orientation. Language was intact. Cranial nerves: Visual alvarez full, pupils were equal and reactive to light, and extra-ocular motion was intact. Face motion were symmetric. Bilateral shoulder shrug was intact. There was mild dysarthria. Motor: Anti-gravity x all four extremities without drift. No pronator drift. FFM symmetric bilatereally. Sensation: Denies numbness. Coordination: Bilateral finger to nose was normal. There was no dysmetria. Gait: deferred Lab / Micro Data 07/16/23 21:44 07/16/23 21:44 Labs: Laboratory Results - last 24 hr 07/16/23 21:33: POC Glucose 106 07/16/23 21:44: WBC 9.3, RBC 4.70, Hgb 15.1, Hct 45.1, MCV 96.0 H, MCH 32.1 H, MCHC 33.5, RDW Std Deviation 45.2 H, RDW Coeff of Bee 12.7, Plt Count 231, MPV 9.1, Immature Gran % (Auto) 0.200, Neut % (Auto) 70.0, Lymph % (Auto) 16.4 L, [place] % (Auto) 11.1 H, Eos % (Auto) 1.9, Baso % (Auto) 0.4, Absolute Neuts (auto) 6.5, Absolute Lymphs (auto) 1.52, Nucleated RBC % 0, PT 16.5 H, INR 1.3, APTT 27.7, Sodium 137, Potassium 4.0, Chloride 104, Carbon Dioxide 27.0, Anion Gap 6, BUN 20 H, Creatinine 1.39 H, Estim Creat Clear Calc 42.37, Est GFR (MDRD) Af Amer 64, Est GFR (MDRD) Non-Af 53 L, BUN/Creatinine Ratio 14.4, Glucose 99, Calcium 8.5, Troponin I High Sens 14 07/16/23 21:49: Hemoglobin A1c 5.4, TSH 1.62 07/17/23 05:55: Triglycerides 81, Cholesterol 129, LDL Cholesterol 69, VLDL Cholesterol 16, HDL Cholesterol 44 Imaging Radiology Impression Brain CT 07/16/23 21:35 IMPRESSION: Chronic involutional changes of the brain. Electronically Signed: Merrill Ng MD at 21:50 EDT , ADDENDUM: 07/16/23 1718 IMPRESSION: Chronic involutional changes of the brain. N.B. : The above Results were Read Back by Merrill Ng MD to Pamella Linares MD, and understanding confirmed on 07/16/2023 21:52:35 (ET). Electronically Signed: Merrill Ng MD at 21:50 EDT , Chest X-Ray 07/16/23 22:05 IMPRESSION: Normal x-ray examination of the chest. Electronically Signed: Merrill Ng MD at 22:28 EDT , Echocardiogram 07/16/23 23:54 Interpretation Summary The estimated ejection fraction is 65 %. Diastolic function is indeterminate. The left atrium is mildly enlarged. Mild (1+) mitral valve insufficiency. Mild (1+) aortic valve insufficiency. Ordering Physician: Stephane Mao Performed By: Coretta Sahni, [facility] Brain MRI 07/17/23 10:00 IMPRESSION: Acute right frontoparietal junction cortical infarct 1. A small acute cortical infarct is present in the posterior superior aspect of the right frontal lobe extending into the postcentral gyrus in the anterior superior aspect of the left parietal lobe as well. No additional acute infarcts are seen. Electronically Signed: Olvin Espinal MD at 11:03 EDT , ADDENDUM: 07/17/23 1125 IMPRESSION: Acute right frontoparietal junction cortical infarct 1. A small acute cortical infarct is present in the posterior superior aspect of the right frontal lobe extending into the postcentral gyrus in the anterior superior aspect of the left parietal lobe as well. No additional acute infarcts are seen. N.B. : The above Results were Read Back by Olvin Espinal MD to Esther Dai RN, and understanding confirmed on 07/17/2023 11:18:52 (ET). Electronically Signed: Olvin Espinal MD at 11:03 EDT , Active Medications Active Medications Active Medications: Current Medications Generic Name Dose Route Start Last Admin Trade Name Freq PRN Reason Stop Dose Admin Acetaminophen 650 mg 07/17/23 00:03 07/17/23 00:22 Acetaminophen 325 Mg Tablet PO 650 mg Q6H PRN PRN Administration Pain 1-10 Or Fever>99.6 Albuterol Sulfate 2.5 mg 07/17/23 00:07 Albuterol 2.5 Mg/3 Ml Vial.Neb. INHALATION Q4H PRN PRN Wheezing Albuterol Sulfate 2.5 mg 07/17/23 00:15 Albuterol 2.5 Mg/3 Ml Vial.Neb. INHALATION Q6HWA.RT RILEY Alprazolam 0.25 mg 07/17/23 00:03 07/17/23 00:22 Alprazolam 0.25 Mg Tablet PO 0.25 mg TID PRN PRN Administration Anxiety Aspirin 81 mg 07/17/23 08:00 07/17/23 11:27 Aspirin 81 Mg Tab.Chew PO 81 mg DAILYCM RILEY Administration Atorvastatin Calcium 40 mg 07/17/23 22:00 Atorvastatin Calcium 40 Mg Tablet PO QHS RILEY Budesonide 0.5 mg 07/17/23 00:15 Budesonide Respules 0.5 Mg/2 Ml Ampul.Neb. INHALATION Q12H.RT RILEY Flecainide Acetate 75 mg 07/17/23 10:00 07/17/23 11:27 Flecainide 150 Mg Tablet PO 75 mg Q12 RILEY Administration Sodium Chloride 250 mls @ 15 mls/hr 07/17/23 00:07 IV .[id number] PRN Additional IVPB Infusion Sodium Chloride 250 mls @ 15 mls/hr 07/17/23 00:07 IV .[id number] PRN Saline Flush Loratadine 10 mg 07/17/23 12:15 07/17/23 13:19 Loratadine 10 Mg Tablet PO 10 mg DAILY RILEY Administration Sodium Chloride 10 - 40 ml 07/17/23 00:07 0.9% Saline Lock 10 Ml Syringe IV UD PRN SALINE FLUSH
[2023-07-17] MEDS: Atorvastatin Calcium 40 MG Tablet PO (20:46)
[2023-07-17] MEDS: APIXABAN 5 MG TABLET PO (20:46)
[2023-07-18 02:00] VITALS: BP 168/93; PULSE 59; RESP 20; TEMP 36.4; O2SAT 99
[2023-07-18 06:00] VITALS: BP 152/89; PULSE 55; RESP 16; O2SAT 95
[2023-07-18] MEDS: Albuterol 2.5 MG/3 ML VIAL.NEB. INHALATION (07:31)
[2023-07-18] MEDS: Budesonide Respules 0.5 MG/2 ML AMPUL.NEB. INHALATION (07:31)
[2023-07-18 07:32] VITALS: PULSE 62; RESP 15; O2SAT 96
[2023-07-18 07:40] VITALS: BP 168/90; PULSE 72; RESP 16; TEMP 36.6; O2SAT 100
[2023-07-18] MEDS: APIXABAN 5 MG TABLET PO (07:42)
[2023-07-18] MEDS: Flecainide 150 MG Tablet 75 MG PO (07:42)
[2023-07-18] MEDS: Aspirin 81 MG TAB.CHEW PO (07:42)
[2023-07-18] MEDS: Loratadine 10 MG Tablet PO (07:42)
[2023-07-18 08:02] LABS: Anion Gap 5 (5-15); BUN 15 mg/dL (7-18); BUN/Creat Ratio 11.9 RATIO (10-20); Calcium,Total 8.9 mg/dL (8.5-10.1); Chloride 107 mmol/L (98-107); Creatinine, Serum 1.26 mg/dL (0.70-1.30); EST Glomerular Filtration Rate 59 mL/min (>60); Est Glom Filt Rate - Afr Amer 71 mL/min (>60); Estimated Creatinine Clearance 46.75 ml/min; Glucose 82 mg/dL (74-106); Potassium 3.8 mmol/L (3.5-5.1); Sodium Level 139 mmol/L (136-145)
[2023-07-18 08:42] VITALS: PULSE 75
[2023-07-18] MEDS: Spironolactone 25 MG Tablet 12.5 MG PO (08:42)
[2023-07-18] MEDS: Losartan Potassium 50 MG Tablet PO (08:42)
[2023-07-18] MEDS: Metoprolol Tartrate 25 MG Tablet PO (08:42)
[2023-07-18 10:00] VITALS: BP 106/73; PULSE 75; RESP 18; TEMP 36.6; O2SAT 99
--- NOTE | 2023-07-18 11:41 | PCM.DC.SUM ---
Providers Date of Admission: 07/16/23 Date of Discharge: 07/18/23 Primary Care Physician: KIRK Curtis Consultations 07/17/23 00:03 Consult: Tele-Neurology Routine Consulting Provider: [facility] Reason for Consult: Acute Ischemic Stroke/TIA EMERGENT Consult: No MD Notified: Yes Date Notified: 07/16/23 Time Notified: 23:48 Method of Notification: ED Physician Initiated Method of Consult:: Telemedicine Nursing Unit Staff Notify [facility] of Tele-Neurology Consult: Yes Reason For Visit: SUBACUTE RIGHT FRONTAL CVA WITH LEFT-SIDED Diagnosis Discharge Diagnosis (1) Facial droop: Status: Acute Code(s): R29.810 - Facial weakness (2) Left-sided weakness: Status: Acute Code(s): R53.1 - Weakness (3) Slurred speech: Status: Acute Code(s): R47.81 - Slurred speech (4) Bradycardia: Status: Acute Code(s): R00.1 - Bradycardia, unspecified Medications at Discharge Home Medications alprazolam 0.25 mg tablet (Xanax) 0.25 mg PO TID PRN Anxiety 11/08/21 multivitamin 1 tab PO DAILY 11/08/21 spironolactone 25 mg tablet (Aldactone) 12.5 mg PO DAILY 11/08/21 albuterol sulfate 90 mcg/actuation aerosol inhaler (ProAir HFA) 1 inh inhalation DAILY PRN Wheezing 11/10/21 cqeegunr-hof- 250 mg-dha 90 mg-epa 160 [id number]-kazy-[id number]-zeax capsule (Ocuvite Adult 50 Plus) 2 cap PO QAM 11/10/21 valsartan 160 mg tablet (Diovan) 160 mg PO BID #180 tabs 12/11/22 apixaban 5 mg tablet (Eliquis) 5 mg PO BID 12/21/22 flecainide 150 mg tablet 75 mg (1/2 x 150 mg) PO Q12H #90 tabs 07/04/23 aspirin 81 mg capsule 81 mg PO DAILY 07/16/23 cetirizine 10 mg tablet (24Hour Allergy) 10 mg PO DAILY PRN allergies 07/17/23 atorvastatin 40 mg tablet 40 mg PO QHS #30 tabs 07/18/23 metoprolol tartrate 25 mg tablet 25 mg PO BID #60 tabs 07/18/23 Hospital Course Procedures 2-D Echocardiogram and - (CT brain/chest x-ray/carotid Dopplers/MRI brain) Summary of Care Provided Minutes Spent on Discharge: 39 Hospital Course: Mr. Mobley is a 78-year-old white male who presented to the emergency department at [facility] at 930 last evening for new onset left facial droop, slurred speech, and left-sided weakness. When he awoke on the morning of presentation he was normal without any deficits. That was about 715 and then while he was making breakfast he noted some left facial droop and slurred speech. He was seen in an outside hospital where he had a stroke workup including a CTA of the head and neck as well as an MRI of the brain. Those reports were obtained by the emergency department and the CT at that time showed no evidence of significant abnormality in the MRI of the brain revealed a right frontal lobe acute hyperacute infarct. The patient is already on baseline anticoagulation for paroxysmal atrial fibrillation and he was advised that he can either follow-up as an outpatient or stay for the admission and he will likely be at home. However after going back home he then noted weakness in his left arm and leg which him to come the emergency department here. He does have a prior history of strokes with left-sided weakness however had no residual baseline deficit. The ER did speak with [facility] neurology after CT here reported no evidence of acute intercranial bleed and they indicated to allow for per minutes of hypertension and admission for further stroke workup. Vital signs on presentation showed a temperature of 97.4, heart rate was 75, respiratory rate 19, initial blood pressure was 216/109 and was 174/89 when he left the emergency department with an oxygen saturation of 95% on room air. His CBC was overtly unremarkable. Coags are slightly abnormal with an elevated PT at 16.5, INR 1.3, 27.7. Chemistry panel shows normal electrolytes with a slightly elevated BUN and creatinine 20 and 1.39 respectively with an unknown baseline. TSH was normal. At baseline he is on apixaban 5 mg p.o. twice daily and a baby aspirin. He also takes flecainide for his A-fib. He was admitted to the PCU and his apixaban was held temporarily as there was concern that he may have a larger stroke. Carotid Dopplers were obtained and showed less than 50% bilateral extracranial internal carotid artery stenosis with patent and antegrade vertebral arteries. Echocardiogram showed an EF of 65% with indeterminate diastolic dysfunction and mild mitral valve and aortic valve insufficiency. His MRI showed a new small acute cortical infarct in the posterior superior aspect of the right frontal lobe extending into the postcentral gyrus and the anterior superior aspect of the left parietal lobe. He was evaluated by [facility] telemetry neurology and they recommended continuing his asa and plavix. We restarted his antihypertensives and his blood pressure was under good control with the current regimen. He did complain of having significant fatigue as they had recently increased his beta-juan at an outside hospital so we did decrease the dose from 50 to 25 mg daily and hopefully this helps him. His blood pressure was well-controlled with this change. We did increase his Lipitor from 28 to 40 mg as well. Prescriptions for these medication changes were sent to the local pharmacy. He was asked to follow-up with a neurologist after discharge. Unfortunately we were unable to schedule him with a neurologist here in [place] as he is booked out until April 2024. He was given a list and asked to call. I have also asked him to follow-up with his primary care physician after discharge within the next 1 to 2 weeks. Patient was discharged home in stable condition on 07/18/2023 Discharge diagnoses: Acute right sided stroke Left-sided weakness-resolved Left facial droop-stable Mild dysarthria-stable History of nonsustained VT History of PAF HTN HPL CAD stage IIIa History of DVT History of asthma History of pulmonary fibrosis Nocturnal hypoxia Physical Exam Const alert, oriented x3, no apparent distress, average body habitus, healthy appearing and well nourished Constitutional Narrative: Very pleasant, older, white male, sitting up in bed, appears comfortable and nontoxic General Appearance: cooperative, comfortable, well kempt and well developed Orientation / Consciousness: awake, oriented to person, oriented to place and oriented to time Exam Limitations: no limitations HEENT normocephalic, head/scalp atraumatic, hearing grossly normal bilaterally and moist oral mucous membranes HEENT Narrative: Dentures in place, Mallampati 2, no thrush Eyes PERRL, EOMs intact bilaterally and conjunctivae normal Eyes Narrative: No scleral icterus Neck no lymphadenopathy and supple Neck Narrative: Trachea midline, no thyroid enlargement Resp normal respiratory effort, no retractions, no use of accessory muscles and clear to auscultation bilaterally Auscultation: Negative for rales, rhonchi or wheezes Cardio regular rate, regular rhythm, S1 normal heart sound, S2 normal heart sound, no murmurs, no rub, no gallops and no clicks GI normal to inspection, nondistended, normoactive bowel sounds, soft to palpation and non-tender Extremity no clubbing, cyanosis or edema Extremity Narrative: Pedal pulses are 2+ Skin no rashes or lesions noted, no wounds, skin turgor normal and no jaundice Neuro oriented x3, CN's II-XII intact bilaterally, moves all extremities, no focal motor deficits and no sensory deficits noted Neuro Narrative: Slight facial droop on the left but all other cranial nerves are intact, no significant weakness in the left upper or lower extremity, sensation in left face is now normal Sensorium / Orientation: awake, alert, oriented to person, oriented to place and oriented to time Speech: speech normal Psych affect normal Weight / BMI Weight Weight: 78 kg Body Mass Index (BMI) 26.1 ABG / Lab / Microbiology Data 07/16/23 21:44 07/18/23 06:08 Laboratory: Laboratory Results - last 24 hr 07/16/23 21:33: POC Glucose 106 07/18/23 06:08: Sodium 139, Potassium 3.8, Chloride 107, Carbon Dioxide 27.0, Anion Gap 5, BUN 15, Creatinine 1.26, Estim Creat Clear Calc 46.75, Est GFR (MDRD) Af Amer 71, Est GFR (MDRD) Non-Af 59 L, BUN/Creatinine Ratio 11.9, Glucose 82, Calcium 8.9 Radiography Diagnostic Testing: Radiology Impression Carotid Duplex 07/16/23 23:54 Interpretation Summary Mild (<50%) stenosis right extracranial internal carotid. Mild (<50%) stenosis left extracranial internal carotid. Patent and antegrade vertebrals bilaterally. Ordering Physician: Stephane Mao Performed By: Dima Romero, RVT Echocardiogram 07/16/23 23:54 Interpretation Summary The estimated ejection fraction is 65 %. Diastolic function is indeterminate. The left atrium is mildly enlarged. Mild (1+) mitral valve insufficiency. Mild (1+) aortic valve insufficiency. Ordering Physician: Stephane Mao Performed By: Coretta Sahni RDCS D/C Instructions Discharge Diet: Low fat / Low cholesterol Discharge Activity: Return to Normal Activity and May Drive Meaningful Use Info Meaningful Use Meaningful Use Diagnoses (Choose all that apply): Ischemic CVA CVA Therapy Assessed for PT,OT and/or ST?: Yes Ischemic Stroke Antithrombotic order at d/c?: Yes Dx of Atrial fib/flutter?: Yes Anticoagulant at discharge?: Yes Statin Dosing Therapy Reference: STATIN DOSE THERAPY REFERENCE: * Patients > 75 years receive moderate or high dose statin therapy. * Patients 75 years or YOUNGER should receive HIGH intensity statin dose unless contraindicated. You will be required to document reason for non-treatment if statin daily dose does not meet guidelines. HIGH DOSE STATIN THERAPY DAILY Atorvastatin > than or = to 40 mg Rosuvastatin > than or = to 20 mg Amlodipine + Atorvastatin > than or = to 2.5/40 mg Ezetimibe + Simvastatin 10/80 mg Simvastatin 80mg Statins at discharge?: Yes Primary Dx Acute Ischemic CVA?: Yes Discharge Plan Admission Admit Date/Time: 07/16/23 23:46 Primary Reason for Your Visit: Left facial droop/dysarthria/left-sided weakness Attending Provider: Navya Crawley Primary Care Provider: Frida Gandara NP Consulting Providers: Chuck Starkey; Divina Maldonado; Eunice Pleitez; Damaris Felix; Holley Ortega; Jeremias Kohler; Bee Marie; Percy Corral; Canelo Contreras; Selene Strong; Nic Holder; Kelly Muir; Blade Lopez; Lucinda Jerez; Joe Gallegos; Álvaro Rashid; Grabiel Mayo; Sonali Crawley; Amador Shaw; Stephane Mao Instructions Additional Instructions / Restrictions: 1. Prior to discharge you were given information on where to follow-up with neurology as we could not get you in with a neurologist in [place] until April 2024. Please call once you are discharged to set up an outpatient appointment to be seen with one of the neurologists. 2. Continue aspirin and Eliquis 3. If your speech does not improve to the point where you are satisfied please discuss with your primary care physician about a speech therapy consult as an outpatient if you are interested 4. Per our discussion we did reduce your beta-juan (metoprolol) from 50 mg to 25 mg. Your blood pressure seems well-controlled despite the change. I did write a new prescription 5. We also changed your cholesterol pill from 20 mg to 40 mg daily. It is okay to take 2 tablets of your old dose the 20 mg daily until those run out so they do not go to waste. Discharge Orders/Prescriptions Prescriptions: New metoprolol tartrate 25 mg Tablet 25 mg PO BID Qty: 60 0RF atorvastatin 40 mg Tablet 40 mg PO QHS Qty: 30 1RF Continued Ocuvite Adult 50 Plus 250 mg (90 mg-160 mg) capsule 2 cap PO QAM albuterol sulfate [ProAir HFA] 90 mcg/actuation HFA aerosol inhaler 1 inh inhalation DAILY PRN (Reason: Wheezing) spironolactone [Aldactone] 25 mg tablet 12.5 mg PO DAILY alprazolam [Xanax] 0.25 mg tablet 0.25 mg PO TID PRN (Reason: Anxiety) multivitamin Tablet 1 tab PO DAILY Eliquis 5 mg tablet 5 mg PO BID aspirin 81 mg capsule 81 mg PO DAILY cetirizine [24Hour Allergy] 10 mg tablet 10 mg PO DAILY PRN (Reason: allergies) valsartan [Diovan] 160 mg tablet 160 mg PO BID Qty: 180 4RF flecainide 150 mg tablet 75 mg PO Q12H Qty: 90 3RF Discontinued atorvastatin 20 mg tablet 20 mg PO QHS metoprolol tartrate 50 mg tablet 50 mg PO BID metoprolol tartrate 25 mg tablet 12.5 mg PO BID Qty: 90 4RF Referrals / Follow Up: Frida Gandara NP, [employer] [Primary Care Provider] - Within 1 Week (Hospital follow-up and blood pressure check. Please call either later today or tomorrow to set up an appointment) Disposition Disposition (needs filled in before D/C Order can be placed): Home, Self Care Charges/Coding Visit Charges Inpatient E&M: 49120 Disch Hosp >30min
--- NOTE | 2023-07-18 13:40 | CASEMGMT ---
Addendum entered by Ruma Figueredo 07/18/23 13:48: RN CM into pt room, pt standing up and dressed ready to be dc'd. Pt aware of the cost of his medication. Pt denies any homegoing needs. He is aware that if his speech doesn't clear to his liking he can notify his pcp for a ST eval. Pt requested cup of ice water, provided to pt. Nurse aware pt is ready for dc from CM standpoint. Original Note: TC to [facility] in [place], pt cost of metoprolol is $4.00.
== END 2023-07-18 14:38 | disposition home or self-care (01) | DRG 66 ==
LOC: ED 22:55 → ICU 07-17 01:42
PROVIDERS: Admitting Provider Internal Medicine; Emergency Provider Emergency Medicine; PCP Nurse Practitioner Family; Visit Provider Internal Medicine
DX: I63.9 Cerebral infarction, unspecified (principal); G47.34 Idiopathic sleep related nonobstructive alveolar hypoventilation; J84.10 Pulmonary fibrosis, unspecified; I48.0 Paroxysmal atrial fibrillation; G51.0 Bell's palsy; E78.2 Mixed hyperlipidemia; E66.3 Overweight; N18.31 Chronic kidney disease, stage 3a; I69.331 Monoplegia of upper limb following cerebral infarction affecting right dominant side; I12.9 Hypertensive chronic kidney disease with stage 1 through stage 4 chronic kidney disease, or unspecified chronic kidney disease; J45.909 Unspecified asthma, uncomplicated; I69.322 Dysarthria following cerebral infarction; R00.1 Bradycardia, unspecified; Z87.891 Personal history of nicotine dependence; Z79.51 Long term (current) use of inhaled steroids; R29.703 NIHSS score 3; R79.1 Abnormal coagulation profile; Z66 Do not resuscitate; R47.81 Slurred speech; Z86.718 Personal history of other venous thrombosis and embolism
CPT/HCPCS: 36415; 70450; 70551; 71045; 80048; 80061; 82962; 83036; 84443; 84484; 85025; 85610; 85730; 92522; 92610; 93005; 93306; 93880; 94640; 94762; 97162; 97166; 97802; 99285

== ENCOUNTER → 2024-06-09 | Outpatient (CLI) | payer MEDICARE, SELFPAY ==
--- NOTE | 2024-06-09 12:37 | CDU_ITS ---
Reason For Study Reason For Study: Carotid stenosis Rt. Velocities/BP Lt. Velocities/BP Prox CCA 51.3/12.6 cm/sec. Prox CCA 59.8/11.6 cm/sec. Mid CCA 44.7/11.6 cm/sec. Mid CCA 48.5/10.7 cm/sec. Dist CCA 41.9/6.9 cm/sec. Dist CCA 42.8/8.8 cm/sec. Prox ICA 60.7/16.3 cm/sec. Prox ICA 41.3/9.9 cm/sec. Mid ICA 65.5/18.2 cm/sec. Mid ICA 56.1/15.1 cm/sec. Dist ICA 77.8/18.2 cm/sec. Dist ICA 60.7/16.2 cm/sec. Rt. ICA/CCA = 1.74. Lt. ICA/CCA = 1.25. Prox ECA 52.2/7.8 cm/sec. Prox ECA 57/6.9 cm/sec. Rt. Vert. 49.4/11.6 cm/sec. Lt. Vert. 24.3/4.7 cm/sec. Right Extracranial There is heterogeneous, irregular atherosclerotic plaque noted in the right common carotid artery. There is heterogeneous, irregular atherosclerotic plaque noted in the right internal carotid artery. There is heterogeneous, irregular atherosclerotic plaque noted in the right external carotid artery. Antegrade flow is noted in the right vertebral artery. Left Extracranial There is homogeneous, smooth atherosclerotic plaque noted in the left common carotid artery. There is heterogeneous, irregular atherosclerotic plaque noted in the left internal carotid artery. There is intimal thickening but no significant atherosclerotic plaque noted in the left external carotid artery. Antegrade flow is noted in the left vertebral artery. Procedure Carotid Duplex [id number]. This is a Carotid Duplex examination using B-mode, color flow and specral Doppler. Exam performed in department. VL/Carotid Duplex Ultrasound Interpretation Summary Mild (<50%) stenosis right extracranial internal carotid. Mild (<50%) stenosis left extracranial internal carotid. Flow within the vertebral arteries is antegrade bilaterally. Ordering Physician: Edwar Ruiz Referring Physician: Libia Wallace Performed By: Irma Levy RVT
== END | disposition home or self-care (01) ==
LOC: CVS 12:33
PROVIDERS: PCP Student in an Organized Health Care Education/Training Program; Referring Provider Psychiatry & Neurology Neurology; Visit Provider Psychiatry & Neurology Neurology
DX: I65.23 Occlusion and stenosis of bilateral carotid arteries (principal)
CPT/HCPCS: 93880

== ENCOUNTER → 2024-09-16 | Outpatient (CLI) | payer MEDICARE, SELFPAY ==
[2024-09-16 16:20] LABS: AST(SGOT) 29 U/L (<=37); Alanine Aminotransfer ALT/SGPT 23 U/L (<=46); Alkaline Phosphatase 73 U/L (40-129); Bilirubin, Direct 0.18 mg/dL (0.00-0.30); Cholesterol 134 mg/dL (<=200); Globulin 2.4 g/dL (2.2-4.2); High Density Lipoprotein 47 mg/dL; Low Density Lipoprotein Calc. 67 mg/dL; Protein, Total 6.4 g/dL (5.9-8.4); Total Bilirubin 0.44 mg/dL (0.00-1.30); Triglycerides 99 mg/dL; Very Low Density Lipoprotein 20 mg/dL (5-40); cholesterol:hdl ratio screen 2.86
== END | disposition home or self-care (01) ==
LOC: LAB 11:51
PROVIDERS: PCP Student in an Organized Health Care Education/Training Program; Referring Provider Student in an Organized Health Care Education/Training Program; Visit Provider Student in an Organized Health Care Education/Training Program
DX: E78.2 Mixed hyperlipidemia (principal)
CPT/HCPCS: 36415; 80061; 80076